=== PATIENT | male | born 1945 | race Caucasian/White ===

== ENCOUNTER 2016-10-18 19:57 | Inpatient (IN) | payer MEDICARE, BC ==
[2016-10-18] MEDS ORDERED: LORazepam 2 MG/ML SYRINGE IV STA (20:19)
--- NOTE | 2016-10-18 20:43 | ED ---
Abdominal Pain HPI - General Source: patient, RN notes reviewed Mode of arrival: EMS <Noris Hernadez - Last Filed: 10/18/16 23:02> <Lauri Rodriguez - Last Filed: 10/19/16 08:57> - General Chief Complaint: Abdominal Pain Stated Complaint: ABD PAIN Time Seen by Provider: 10/18/16 20:14 - History of Present Illness Initial Comments: 70-year-old male presents to the emergency department with a chief complaint abdominal pain. Patient has had abdominal pain has not been passing gas and nausea vomiting. Patient went to [facility] was diagnosed with small bowel obstruction. Patient was transferred here for continued care. This patient states he is feeling better. There is no and G-tube placement they were unsuccessful at that facility. Patient states that at this time he is feeling better. The vomiting has resolved.Patient denies any recent fever, chills, shortness of breath, chest pain, back pain, numbness or tingling, dysuria or hematuria, constipation or diarrhea, headaches or visual changes, or any other current symptoms. (Noris Hernadez) - Related Data Home Medications Medication Instructions Recorded Confirmed Vit C/E/Zn/Coppr/Lutein/Zeaxan 1 cap PO DAILY 10/18/16 10/18/16 [Preservision Areds 2 Softgel] Allergies Allergy/AdvReac Type Severity Reaction Status Date / Time No Known Allergies Allergy Verified 10/18/16 20:28 Review of Systems ROS Other: All systems not noted in ROS Statement are negative. <Noris Hernadez - Last Filed: 10/18/16 23:02> ROS Other: All systems not noted in ROS Statement are negative. <Lauri Rodriguez - Last Filed: 10/19/16 08:57> ROS Statement: Those systems with pertinent positive or pertinent negative responses have been documented in the HPI. Past Medical History Past Medical History: Cancer History of Any Multi-Drug Resistant Organisms: None Reported Past Surgical History: Appendectomy Additional Past Surgical History / Comment(s): prostate SX Past Psychological History: No Psychological Hx Reported Smoking Status: Current every day smoker Past Alcohol Use History: Daily Past Drug Use History: None Reported <Noris Hernadez - Last Filed: 10/18/16 23:02> General Exam <Noris Hernadez - Last Filed: 10/18/16 23:02> <Lauri Rodriguez - Last Filed: 10/19/16 08:57> - General Exam Comments Initial Comments: General: The patient is awake and alert, in no distress, and does not appear acutely ill. Eye: Pupils are equal, round and reactive to light, extra-ocular movements are intact; there is normal conjunctiva bilaterally. No signs of icterus. Ears, nose, mouth and throat: There are moist mucous membranes. Neck: The neck is supple, there is no tenderness. Cardiovascular: There is a regular rate and rhythm. No murmur, rub or gallop is appreciated. Respiratory: Lungs are clear to auscultation, respirations are non-labored, breath sounds are equal. No wheezes, stridor, rales, or rhonchi. Gastrointestinal: Soft, distended, non-tender abdomen without masses or organomegaly noted. There is no rebound or guarding present. No CVA tenderness. Bowel sounds are unremarkable. Back: There is no tenderness to palpation in the midline. There is no obvious deformity. No rashes noted. Musculoskeletal: Normal ROM, no tenderness, There is no pedal edema. There is no calf tenderness or swelling. Sensation intact. Pulses equal bilaterally 2+. Neurological: CN II-XII intact, There are no obvious motor or sensory deficits. Coordination appears grossly intact. Speech is normal. Skin: Skin is warm and dry and no rashes or lesions are noted. Psychiatric: Cooperative, appropriate mood & affect, normal judgment. (Noris Hernadez) Medical Decision Making <Noris Hernadez - Last Filed: 10/18/16 23:02> - Lab Data Result diagrams: 10/19/16 07:17 10/19/16 07:17 <Lauri Rodriguez - Last Filed: 10/19/16 08:57> - Medical Decision Making 70-year-old male with chief complaint of abdominal pain. This time patient does appear to be small bowel obstruction. This time there was multiple times to place an NG tube with no success. This patient continues to deny any pain or discomfort. At this time we will admit the patient for the small bowel obstruction. We discussed this with the patient was in agreement with plan. ( Noris Hernadez) I saw this patient in conjunction with the physician front desk assistant. I performed independent history and physical exam. Agree with case management. (Lauri Rodriguez) Disposition Time of Disposition: 21:42 Decision Date: 10/18/16 Decision Time: 21:42 <Noris Hernadez - Last Filed: 10/18/16 23:02> <Lauri Rodriguez - Last Filed: 10/19/16 08:57> Clinical Impression: Small bowel obstruction Disposition: ADMITTED IP TO THIS [facility] Condition: Stable
[2016-10-18] MEDS ORDERED: ONDANSETRON 4 MG/2 ML VIAL IVP PRN (23:02)
[2016-10-18] MEDS ORDERED: LORazepam 2 MG/ML SYRINGE IV PRN (23:02)
[2016-10-18] MEDS ORDERED: NALOXONE 0.4 MG/ML 1 ML VIAL IV PRN (23:02)
[2016-10-18] MEDS ORDERED: PIPERACILLIN-TAZOBACTAM 3.375 GM in DEXTROSE/WATER 1 50ML.BAG IVPB STA (23:27)
[2016-10-18] MEDS ORDERED: ACETAMINOPHEN IV (For NPO) 1,000 MG in EMPTY BAG 1 BAG IVPB ONE (23:30)
[2016-10-19] MEDS: SODIUM CHLORIDE 0.9% 1,000 ML IV SCH ×3 (00:07→21:46)
[2016-10-19 07:52] LABS: ALT 41 U/L (21-72); AST 25 U/L (17-59); Alkaline Phosphatase 71 U/L (38-126); Anion Gap 7 mmol/L; Blood Urea Nitrogen 14 mg/dL (9-20); Carbon Dioxide 27 mmol/L (22-30); Chloride 100 mmol/L (98-107); Glucose 94 mg/dL (74-99); Non-African American GFR(MDRD) >60 (>60 ml/min/1.73 sqM); Potassium 3.8 mmol/L (3.5-5.1); Sodium 134 mmol/L (137-145); Total Bilirubin 0.7 mg/dL (0.2-1.3); Total Protein 5.4 g/dL (6.3-8.2)
[2016-10-19 08:21] LABS: Basophils % (A) 1 %; CH 33.9; CHCM 34.5; Eosinophils # (A) 0.1 k/uL (0-0.7); Eosinophils % (A) 2 %; HCT 43.8 % (39.0-53.0); HGB 14.9 gm/dL (13.0-17.5); Luc # (Auto) 0.13; Luc % (Auto) 2; Lymphocytes # (A) 1.4 k/uL (1.0-4.8); Lymphocytes % (A) 19 %; MCH 33.7 pg (25.0-35.0); MCHC 34.1 g/dL (31.0-37.0); MCV 98.9 fL (80.0-100.0); Mean Platelet Volume 7.5; Monocytes # (A) 0.6 k/uL (0-1.0); Monocytes % (A) 8 %; Neutrophils # (A) 5.2 k/uL (1.3-7.7); Neutrophils % (A) 69 %; RBC 4.43 m/uL (4.30-5.90); RDW 12.8 % (11.5-15.5); WBC 7.5 k/uL (3.8-10.6); WBC (Perox) 8.02
[2016-10-19] MEDS: PIPERACILLIN-TAZOBACTAM 3.375 GM in DEXTROSE/WATER 1 50ML.BAG IVPB SCH ×3 (09:08→23:37)
--- NOTE | 2016-10-19 14:39 | XR ---
EXAMINATION TYPE: XR abdomen 1V DATE OF EXAM: 10/19/2016 COMPARISON: NONE INDICATION: Nasogastric tube placement TECHNIQUE: Single view abdomen upright position FINDINGS: Multiple dilated small bowel loops with air-fluid levels are present. Findings are compatible with hi gh-grade partial small bowel obstruction. Some colonic bowel gas may be in the right lower quadrant. IMPRESSION: 1. Findings suggestive for small bowel obstruction. 2. Nasogastric tube placed with the tip in the left upper quadrant of the abdomen.
[2016-10-19] MEDS: HYDROmorphone 1 MG/ML 1 ML SYRINGE IV PRN ×2 (14:46→21:45)
--- NOTE | 2016-10-19 16:07 | P.GSHP ---
History of Present Illness H&P Date: 10/19/16 Chief Complaint: Abdominal pain Patient is a 70-year-old male, referred from Dr. Gt Sullivan, with medical history significant for appendectomy, prostatectomy, and alcohol abuse. Patient was transferred from [facility] where he had originally presented with abdominal pain, bloating, nausea and vomiting. Apparently, patient had suffered from diarrhea for 2-3 days approximately 2 weeks ago and then he started having constipation. Over the last 4-5 days, patient reports not having a bowel movement or passing flatus and was experiencing increased abdominal bloating and burping. Yesterday, patient had intermittent episodes of bilious emesis. No history of fevers, chills, shortness of breath, or chest pain. Computed tomography scan of abdomen and pelvis obtained at [facility] showed evidence of small bowel obstruction at the level of the proximal ascending colon with an annular lesion with approximately 4.3 cm of small bowel dilatation. Apparently nasogastric tube was attempted several times at [facility] and in the emergency department at [facility] without success. In the emergency department, patient was started on IV Zosyn and patient was admitted to the surgical unit. Past Medical History Past Medical History: Cancer History of Any Multi-Drug Resistant Organisms: None Reported Past Surgical History: Appendectomy Additional Past Surgical History / Comment(s): prostate SX Past Anesthesia/Blood Transfusion Reactions: No Reported Reaction Past Psychological History: No Psychological Hx Reported Smoking Status: Never smoker Past Alcohol Use History: Daily Past Drug Use History: None Reported Medications and Allergies Home Medications Medication Instructions Recorded Confirmed Type Vit C/E/Zn/Coppr/Lutein/Zeaxan 1 cap PO DAILY 10/18/16 10/18/16 History [Preservision Areds 2 Softgel] Allergies Allergy/AdvReac Type Severity Reaction Status Date / Time No Known Allergies Allergy Verified 10/18/16 20:28 Surgical - Exam Vital Signs Temp Pulse Resp BP Pulse Ox 99.9 F H 101 H 18 145/75 96 10/18/16 20:01 10/18/16 20:01 10/18/16 20:01 10/18/16 20:01 10/18/16 20:01 GENERAL: Pt awake and alert, well-appearing, well-nourished, and in no acute distress. HEAD: Atraumatic, normocephalic. EYES: Pupils equal, round, sclera anicteric, conjunctiva are normal. ENT: Moist mucous membranes. LUNGS: Breath sounds clear to auscultation bilaterally. No wheezes, rales, or rhonchi. HEART: Heart S1, S2, no S3 or S4. Regular rate and rhythm. No murmurs, rubs or gallops. ABDOMEN: Soft, mild diffuse tenderness, distended tympanic bowel sounds. No guarding, no rebound. EXTREMITIES: 2+ peripheral pulses. NEUROLOGICAL: Pt oriented x 3. No focal deficits noted. Strength and sensation grossly intact. Results - Labs 10/19/16 07:17 10/19/16 07:17 Abnormal Lab Results - Last 24 Hours (Table) 10/19/16 Range/Units 07:17 Sodium 134 L (137-145) mmol/L Creatinine 0.63 L (0.66-1.25) mg/dL Calcium 8.0 L (8.4-10.2) mg/dL Total Protein 5.4 L (6.3-8.2) g/dL Albumin 3.0 L (3.5-5.0) g/dL Diabetes panel 10/19/16 Range/Units 07:17 Sodium 134 L (137-145) mmol/L Potassium 3.8 (3.5-5.1) mmol/L Chloride 100 (98-107) mmol/L Carbon Dioxide 27 (22-30) mmol/L BUN 14 (9-20) mg/dL Creatinine 0.63 L (0.66-1.25) mg/dL Glucose 94 (74-99) mg/dL Calcium 8.0 L (8.4-10.2) mg/dL AST 25 (17-59) U/L ALT 41 (21-72) U/L Alkaline Phosphatase 71 (38-126) U/L Total Protein 5.4 L (6.3-8.2) g/dL Albumin 3.0 L (3.5-5.0) g/dL Calcium panel 10/19/16 Range/Units 07:17 Calcium 8.0 L (8.4-10.2) mg/dL Albumin 3.0 L (3.5-5.0) g/dL Pituitary panel 10/19/16 Range/Units 07:17 Sodium 134 L (137-145) mmol/L Potassium 3.8 (3.5-5.1) mmol/L Chloride 100 (98-107) mmol/L Carbon Dioxide 27 (22-30) mmol/L BUN 14 (9-20) mg/dL Creatinine 0.63 L (0.66-1.25) mg/dL Glucose 94 (74-99) mg/dL Calcium 8.0 L (8.4-10.2) mg/dL Adrenal panel 10/19/16 Range/Units 07:17 Sodium 134 L (137-145) mmol/L Potassium 3.8 (3.5-5.1) mmol/L Chloride 100 (98-107) mmol/L Carbon Dioxide 27 (22-30) mmol/L BUN 14 (9-20) mg/dL Creatinine 0.63 L (0.66-1.25) mg/dL Glucose 94 (74-99) mg/dL Calcium 8.0 L (8.4-10.2) mg/dL Total Bilirubin 0.7 (0.2-1.3) mg/dL AST 25 (17-59) U/L ALT 41 (21-72) U/L Alkaline Phosphatase 71 (38-126) U/L Total Protein 5.4 L (6.3-8.2) g/dL Albumin 3.0 L (3.5-5.0) g/dL Assessment and Plan Plan: Impression: 1. Small bowel obstruction possibly due to obstructive lesion. Plan: Keep patient nothing by mouth. Insert nasogastric tube to low intermittent suction. Continue IV hydration. Continue IV antibiotics. Continue symptomatic treatment and pain management. Repeat CBC and BMP in a.m. The above impression and plan have been discussed and directed by Dr. Wu. Chantel MOSS acting as scribe for Dr. Wu.
[2016-10-20] MEDS: SODIUM CHLORIDE 0.9% 1,000 ML IV SCH ×2 (05:16→15:57)
[2016-10-20 07:40] LABS: Anion Gap 9 mmol/L; Blood Urea Nitrogen 14 mg/dL (9-20); Calcium 7.9 mg/dL (8.4-10.2); Carbon Dioxide 20 mmol/L (22-30); Chloride 106 mmol/L (98-107); Glucose 62 mg/dL (74-99); Non-African American GFR(MDRD) >60 (>60 ml/min/1.73 sqM); Potassium 3.8 mmol/L (3.5-5.1); Sodium 135 mmol/L (137-145)
[2016-10-20 08:03] LABS: Basophils # (A) 0.1 k/uL (0-0.2); Basophils % (A) 1 %; CH 33.6; CHCM 34.8; Eosinophils # (A) 0.1 k/uL (0-0.7); Eosinophils % (A) 2 %; HCT 41.7 % (39.0-53.0); HGB 14.5 gm/dL (13.0-17.5); Luc # (Auto) 0.16; Luc % (Auto) 2; Lymphocytes # (A) 1.9 k/uL (1.0-4.8); Lymphocytes % (A) 24 %; MCH 33.8 pg (25.0-35.0); MCHC 34.8 g/dL (31.0-37.0); MCV 97.1 fL (80.0-100.0); Mean Platelet Volume 7.2; Monocytes # (A) 0.5 k/uL (0-1.0); Monocytes % (A) 6 %; Neutrophils # (A) 5.1 k/uL (1.3-7.7); Neutrophils % (A) 65 %; RDW 12.7 % (11.5-15.5); WBC 7.8 k/uL (3.8-10.6); WBC (Perox) 7.55
[2016-10-20] MEDS: PIPERACILLIN-TAZOBACTAM 3.375 GM in DEXTROSE/WATER 1 50ML.BAG IVPB SCH ×3 (09:23→23:42)
[2016-10-20] MEDS: PANTOPRAZOLE 40 MG/10 ML VIAL IVP SCH (09:23)
[2016-10-20] MEDS: IOHEXOL 350 MG/ML 25 ML BOTTLE (ORAL USE) PO PRN ×2 (13:28→16:00)
[2016-10-20] MEDS ORDERED: KETOROLAC 30 MG/ML 1 ML VIAL IVP PRN (14:04)
--- NOTE | 2016-10-20 14:47 | P.PN ---
Subjective Principal diagnosis: Small bowel obstruction Patient is a 70-year-old male, referred from Dr. Gt Sullivan, admitted with evidence of small bowel obstruction at the level of the proximal ascending colon with an annular lesion with approximately 4.3 cm of small bowel dilatation. Nasogastric tube was inserted yesterday for small bowel decompression. Upon examination, patient complains of minimal abdominal pain. Denies nausea, vomiting, chills, or chest pain. Patient states she might have passed flatus when he was up ambulating but is not sure. No bowel movement. Afebrile. No evidence of leukocytosis. 650 mL of gastric drainage was obtained immediately after nasogastric tube was inserted at 3 PM yesterday with subsequently 150 mL obtained since then. Objective - Vital Signs Vital signs: Vital Signs Temp 97.6 F 10/20/16 14:10 Pulse 79 10/20/16 14:10 Resp 16 10/20/16 14:10 BP 154/79 10/20/16 14:10 Pulse Ox 95 10/20/16 14:10 Intake & Output 10/19/16 10/20/16 10/20/16 18:59 06:59 18:59 Intake Total 950 1150 Output Total 650 150 Balance 300 1000 Intake: Intake, IV Titration 950 1150 Amount Piperacillin-Tazobactam 3 50 100 .375 gm In Dextrose/Water 1 50ml.bag @ 12.5 mls/hr IVPB Q8HR [facility]MA Rx#: [id number] Sodium Chloride 0.9% 1, 900 1050 000 ml @ 100 mls/hr IV . Q10H EMMA Rx#:[id number] Output: Gastric Drainage 650 150 Other: Voiding Method Toilet Toilet # Voids 1 3 - Exam GENERAL: Pt awake and alert, well-appearing, well-nourished, and in no acute distress. HEAD: Atraumatic, normocephalic. EYES: Pupils equal, round, sclera anicteric, conjunctiva are normal. ENT: Moist mucous membranes. LUNGS: Breath sounds diminished with rhonchi to auscultation bilaterally. HEART: Heart S1, S2, no S3 or S4. Regular rate and rhythm. No murmurs, rubs or gallops. ABDOMEN: Soft, nontender, distended, hypoactive bowel sounds. No guarding, no rebound. - Labs CBC & Chem 7: 10/20/16 06:47 10/20/16 06:47 Labs: Abnormal Lab Results - Last 24 Hours (Table) 10/20/16 Range/Units 06:47 Sodium 135 L (137-145) mmol/L Carbon Dioxide 20 L (22-30) mmol/L Creatinine 0.65 L (0.66-1.25) mg/dL Glucose 62 L (74-99) mg/dL Calcium 7.9 L (8.4-10.2) mg/dL Assessment and Plan Plan: Impression: 1. Small bowel obstruction possibly due to obstructive lesion. Plan: Patient will undergo repeat CT abdomen and pelvis with oral contrast. Continue nasogastric tube for small bowel decompression. Continue IV hydration. Continue IV antibiotics. Continue symptomatic treatment and pain management. Repeat CBC and BMP in a.m. The above impression and plan have been discussed and directed by Dr. Wu. Chantel MOSS acting as scribe for Dr. Wu.
[2016-10-20] MEDS: HEPARIN SODIUM,PORCINE 5,000 UNIT/ML 1 ML VIAL SQ SCH ×2 (16:36→23:42)
--- NOTE | 2016-10-20 19:28 | CT ---
EXAMINATION TYPE: CT abdomen pelvis wo con DATE OF EXAM: 10/20/2016 COMPARISON: NONE HISTORY: Follow-up small bowel obstruction. CT DLP: 466.70 mGycm FINDINGS: LUNG BASES: Bilateral pleural effusions measuring 4.1 cm AP dimension on the left and 2.6 cm AP dimen sin on the right. Basilar compressive atelectasis noted as well. LIVER/GB: The gallbladder is unremarkable. No space-occupying hepatic lesion. PANCREAS: No pancreatic mass identified. No inflammatory process seen. SPLEEN: No evidence for splenomegaly. No intrasplenic lesions seen. ADRENALS: No adrenal nodules identified. No evidence for thickening. KIDNEYS: No evidence for renal mass. No nephrolithiasis. No hydronephrosis. BOWEL: NG tube is in place.There is severe dilatation of the ileal loops with fecalization noted. Ile al loops measure up to a 7.8 cm. The jejunal loops are also dilated although to a lesser extent measu ring up to 4.7 cm. There is decompression of the Colon. The findings are compatible with complete di stal small bowel obstruction. There is mild edema of the right lower quadrant small bowel mesentery. Small bowel wall thickening is seen. There is small amount of ascites within the pelvis. Fat-containi ng umbilical hernia. Lymph nodes: No evidence for adenopathy greater than 1 cm. Abdominal aorta: Atheromatous changes seen. No evidence for aneurysm. Genital organs: No significant abnormality. Other: Generative changes lumbar spine. IMPRESSION: 1.The findings are compatible with complete high-grade distal small bowel obstruction. 2. Bilateral pleural effusions and compressive atelectasis. 3. Small amount of ascites. 4. Fat-containing umbilical hernia.
[2016-10-20] MEDS: HYDROmorphone 1 MG/ML 1 ML SYRINGE IV PRN (22:16)
--- NOTE | 2016-10-20 23:34 | CONS ---
DATE OF CONSULTATION: REASON FOR CONSULTATION: Dehydration and IV fluid management. Patient is a very pleasant 70-year-old gentleman who came in with nausea, vomiting, abdominal pain. Abdominal pain at this point of time has resolved. Patient still has abdominal distention. Patient was having significant output from the NG tube. Patient was on 100 mL of IV fluid. Patient has a total of 150 mL from the NG tube. Patient was constipated apparently. Patient does not have any bowel sounds. Patient had bilious emesis. Patient's NG tube was clamped at this point of time. Patient is going for CT of the abdomen for further evaluation. Patient does not have any significant medical problems. Patient denied any fever or chills. Patient denied any cough, runny nose, dysuria. Patient is on Zosyn, although I did not see any signs or symptoms of infection at this point of time. REVIEW OF SYSTEMS: CONSTITUTIONAL: No fever, no malaise, no fatigue. HEENT: No recent visual problems or hearing problems. Denied any sore throat. CARDIOVASCULAR: No chest pain, orthopnea, PND, no palpitations, no syncope. PULMONARY: No shortness of breath, no cough, no hemoptysis. GASTROINTESTINAL: As described in HPI. NEUROLOGICAL: No headaches, no weakness, no numbness. HEMATOLOGICAL: Denies any bleeding or petechiae. GENITOURINARY: Denies any burning micturition, frequency, or urgency. MUSCULOSKELETAL/RHEUMATOLOGICAL: Denies any joint pain, swelling, or any muscle pain. ENDOCRINE: Denies any polyuria or polydipsia. The rest of the 14 point review of systems is negative. Past medical history is significant for: 1. Cancer; not sure where the primary is. 2. Appendectomy. SOCIAL HISTORY: Denied any smoking, alcohol abuse or any drug abuse. FAMILY HISTORY: Unknown at this point of time. PHYSICAL EXAMINATION: Temperature 97.6, pulse of 79, respiratory rate of 16, blood pressure 154/79. Saturating at 94% on room air. GENERAL: The patient is alert and oriented x3, not in any acute distress. Well developed, well nourished. HEENT: Pupils are round and equally reacting to light. EOMI. No scleral icterus. No conjunctival pallor. Normocephalic, atraumatic. No pharyngeal erythema. No thyromegaly. CARDIOVASCULAR: S1 and S2 present. No murmurs, rubs, or gallops. PULMONARY: Chest is clear to auscultation, no wheezing or crackles. ABDOMEN: Distended. Tympanitic. Sluggish or absent bowel sounds in all 4 quadrants. MUSCULOSKELETAL: No joint swelling or deformity. EXTREMITIES: No cyanosis, clubbing, or pedal edema. NEUROLOGICAL: Gross neurological examination did not reveal any focal deficits. SKIN: No rashes. LABORATORY DATA, SIGNIFICANT ONES: Sodium was 134 yesterday and now 135. ASSESSMENT AND PLAN: 1. Partial small bowel obstruction. Patient is undergoing CT today. Patient has an NG tube which only drained 120 mL today, because of which I believe 100 mL is appropriate. 2. Acute renal failure due to nausea and vomiting, which is expected to improve with IV fluids. Patient is on appropriate rate of IV fluids at this point of time. 3. Hyponatremia; hypovolemic hyponatremia, which is improving at this point of time with IV fluids. 4. Regarding pain medications, patient is not requiring much pain medication. 5. Patient will be started on Ketorolac and patient is already on GI prophylaxis. 6. DVT prophylaxis as per primary service. 7. Patient is appropriately on heparin at this point of time. Thank for letting me participate in this patient's care. Will continue to follow the patient.
[2016-10-21] MEDS: SODIUM CHLORIDE 0.9% 1,000 ML IV SCH ×2 (03:17→14:59)
[2016-10-21] MEDS: PANTOPRAZOLE 40 MG/10 ML VIAL IVP SCH (09:06)
[2016-10-21] MEDS: PIPERACILLIN-TAZOBACTAM 3.375 GM in DEXTROSE/WATER 1 50ML.BAG IVPB SCH ×3 (09:12→23:13)
[2016-10-21] MEDS: HEPARIN SODIUM,PORCINE 5,000 UNIT/ML 1 ML VIAL SQ SCH ×3 (09:12→23:14)
[2016-10-21] MEDS ORDERED: IV FLUID CONTINUATION 1,000 ML IV ONE (10:02)
[2016-10-21 10:05] VITALS: BMI 23.2
[2016-10-21] MEDS ORDERED: MIDAZOLAM 2 MG/2 ML VIAL IVP ONE ×2 (10:28→11:11)
[2016-10-21] MEDS ORDERED: fentaNYL (PF) 50 MCG/ML 2 ML AMP IV ONE ×2 (10:28→11:11)
[2016-10-21] MEDS ORDERED: ONDANSETRON 4 MG/2 ML VIAL IVP ONE (10:43)
[2016-10-21] MEDS ORDERED: DEXAMETHASONE SOD PHOS (MDV) 100 MG/10 ML VIAL IVP ONE (10:44)
--- NOTE | 2016-10-21 10:47 | P.PN ---
Progress Note - Text The patient's latest CAT scan shows a complete high-grade small bowel obstruction. Patient will undergo exposure laparotomy with possible lysis of adhesion or bowel resection today.
[2016-10-21] MEDS ORDERED: CLINDAMYCIN 150 MG/ML 4 ML VIAL ONE (11:12)
[2016-10-21] MEDS ORDERED: SODIUM CHLORIDE 0.9% 100 ML BAG ONE (11:12)
[2016-10-21] MEDS ORDERED: NEOSTIGMINE 1 MG/ML 10 ML VIAL ONE (11:12)
[2016-10-21] MEDS ORDERED: SUCCINYLCHOLINE CHLORIDE 100 MG/5 ML SYR IV ONE (11:12)
[2016-10-21] MEDS ORDERED: PROPOFOL 10 MG/ML 20 ML VIAL IV ONE (11:12)
[2016-10-21] MEDS ORDERED: LIDOCAINE 1% INJ 10MG/ML (20 ML MDV) ONE (11:12)
[2016-10-21] MEDS ORDERED: ePHEDrine 50 MG/ML 1 ML AMP ONE (11:12)
[2016-10-21] MEDS ORDERED: ROCURONIUM BROMIDE 10 MG/ML 10 ML VIAL IV ONE (11:12)
[2016-10-21] MEDS ORDERED: PHENYLEPHRINE-0.9% NACL SYG 1 MG/10 ML SYRINGE ONE (11:12)
[2016-10-21] MEDS ORDERED: MIDAZOLAM 2 MG/2 ML VIAL ONE (11:12)
[2016-10-21] MEDS ORDERED: fentaNYL (PF) 50 MCG/ML 2 ML AMP ONE (11:12)
[2016-10-21] MEDS ORDERED: HEPARIN SODIUM,PORCINE 5,000 UNIT/ML 1 ML VIAL ONE (11:12)
[2016-10-21] MEDS ORDERED: GLYCOPYRROLATE 0.2 MG/ML 2 ML VIAL ONE (11:12)
[2016-10-21] MEDS ORDERED: NALOXONE 0.4 MG/ML 1 ML VIAL IV PRN (11:43)
[2016-10-21] MEDS ORDERED: LACTATED RINGERS 1,000 ML IV ONE ×2 (11:52→12:35)
[2016-10-21] MEDS ORDERED: HYDROmorphone 1 MG/ML 1 ML SYRINGE IVP PRN (12:47)
[2016-10-21] MEDS ORDERED: METOCLOPRAMIDE 5 MG/ML 2 ML VIAL IVP PRN (12:47)
--- NOTE | 2016-10-21 12:57 | P.OP ---
Date of Procedure: 10/21/16 Preoperative Diagnosis: Small bowel obstruction Postoperative Diagnosis: Ventral hernia Incarcerated umbilical hernia with incarcerated omentum Small bowel and cecal obstruction secondary to right colon cancer Procedure(s) Performed: Right colectomy Repair of ventral hernia Repair of incarcerated umbilical hernia Partial greater omentectomy Implants: Anesthesia: GO Surgeon: Gilbert Wu Estimated Blood Loss (ml): 150 Pathology: other (Right colon, terminal ileum, incarcerated greater omentum) Condition: stable Disposition: PACU Indications for Procedure: Operative Findings: Description of Procedure: Patient's placed the operative table in the supine position. He received general anesthesia. His abdomen was prepped and draped in usual sterile fashion. The abdomen was entered through a midline incision. There was incarcerated umbilical hernia. The omentum was dissected free from the incarcerated we'll hernia. Sent to pathology. There is also noted to be a small ventral hernia located in the midline. There was distended small bowel seen upon entering the abdomen. There was some ascitic fluid. The small bowel was run from the ligament traced to the terminal ileum and there was no obstruction seen. There was a complete small bowel obstruction with the bowel quite dilated. The cecum was dilated. There was a obstructing mass in the ascending colon. At this point the right colon and cecum were mobilized by dividing the white line of Toldt. The hepatic flexure is mobilized. And then the colon distal to the obstruction was transected with the FANTA stapler. Following this the terminal ileum was transected with a GI stapler. Then using LigaSure device the mesentery the colon and small bowel were divided. The specimens of pathology. Next a small opening was made in the staple line of the small bowel and using suction the small bowel was decompressed. There is a large amount of feculent fluid within the small bowel. Next a [id number] functional end-to-end staple anastomosis created between the terminal ileum and distal descending colon. Using the FANTA and TA stapler. A 3-0 GI silk was used for a crotch stitch. The abdomen was then clipped irrigated with 6 L normal saline. There is no other evidence of metastatic disease. The fascia was then closed with looped #1 PDS suture. The umbilical hernia and ventral hernia were repaired during the fascial closure. The skin was closed jules. 2 small areas were left open with Telfa melvin placed in the subcutaneous space. The patient had sterile dressing applied and was sent to recovery in stable condition.
[2016-10-21] MEDS: BUPIVACAINE (PF) 0.5% 50 ML, HYDROMORPHONE (PF) 5 MG in SODIUM CHLORIDE 0.9% 200 ML EPIDURAL PRN ×3 (13:03→14:41)
[2016-10-21] MEDS: LACTATED RINGERS 1,000 ML IV SCH ×3 (14:41→20:37)
[2016-10-22] MEDS: LACTATED RINGERS 1,000 ML IV SCH ×2 (05:06→15:29)
[2016-10-22 07:28] LABS: Basophils % (A) 0 %; CH 33.7; CHCM 34.4; Eosinophils % (A) 0 %; HCT 39.9 % (39.0-53.0); HDW 2.65; HGB 13.4 gm/dL (13.0-17.5); Luc % (Auto) 2; Lymphocytes # (A) 1.6 k/uL (1.0-4.8); Lymphocytes % (A) 15 %; MCH 33.2 pg (25.0-35.0); MCHC 33.7 g/dL (31.0-37.0); MCV 98.5 fL (80.0-100.0); Mean Platelet Volume 7.5; Monocytes # (A) 0.5 k/uL (0-1.0); Monocytes % (A) 5 %; Neutrophils # (A) 8.1 k/uL (1.3-7.7); Neutrophils % (A) 78 %; RBC 4.05 m/uL (4.30-5.90); RDW 12.6 % (11.5-15.5); WBC 10.5 k/uL (3.8-10.6); WBC (Perox) 11.26
[2016-10-22 07:51] LABS: Anion Gap 6 mmol/L; Blood Urea Nitrogen 12 mg/dL (9-20); Calcium 7.9 mg/dL (8.4-10.2); Carbon Dioxide 26 mmol/L (22-30); Chloride 103 mmol/L (98-107); Glucose 89 mg/dL (74-99); Non-African American GFR(MDRD) >60 (>60 ml/min/1.73 sqM); Potassium 4.7 mmol/L (3.5-5.1); Sodium 135 mmol/L (137-145)
[2016-10-22] MEDS: HEPARIN SODIUM,PORCINE 5,000 UNIT/ML 1 ML VIAL SQ SCH ×3 (08:30→23:35)
[2016-10-22] MEDS: PANTOPRAZOLE 40 MG/10 ML VIAL IVP SCH (08:30)
[2016-10-22] MEDS: PIPERACILLIN-TAZOBACTAM 3.375 GM in DEXTROSE/WATER 1 50ML.BAG IVPB SCH ×3 (09:39→23:36)
--- NOTE | 2016-10-22 11:54 | P.PN ---
Subjective Principal diagnosis: Colon tumor The patient's postoperative day 1 from a right hemicolectomy for a colon tumor. His pain is well controlled with epidural. No nausea no vomiting. No chest pain or shortness of breath. Objective - Vital Signs Vital signs: Vital Signs Temp 97.7 F 10/22/16 08:00 Pulse 111 H 10/22/16 08:00 Resp 16 10/22/16 08:00 BP 117/56 10/22/16 08:00 Pulse Ox 96 10/22/16 08:00 Intake & Output 10/21/16 10/22/16 10/22/16 18:59 06:59 18:59 Intake Total 2809 Output Total 530 875 Balance 2279 -875 Weight 69.4 kg Intake: IV 2809 Output: Gastric Drainage 200 Urine 400 675 Uretheral (Bowens) 675 Estimated Blood Loss 130 Other: Voiding Method Indwelling Catheter Indwelling Catheter # Voids 1 - Constitutional General appearance: Present: cooperative, no acute distress - Respiratory Respiratory: bilateral: CTA, diminished (Mildly at the base) - Cardiovascular Rhythm: regular - Gastrointestinal General gastrointestinal: Present: absent bowel sounds, soft Localized gastrointestinal: surgical scar: diffuse (Dressing is intact clean and dry) - Labs CBC & Chem 7: 10/22/16 06:32 10/22/16 06:32 Labs: Abnormal Lab Results - Last 24 Hours (Table) 10/22/16 10/22/16 Range/Units 06:32 06:32 RBC 4.05 L (4.30-5.90) m/uL Neutrophils # 8.1 H (1.3-7.7) k/uL Sodium 135 L (137-145) mmol/L Calcium 7.9 L (8.4-10.2) mg/dL Assessment and Plan (1) Colon tumor Status: Acute (2) Small bowel obstruction Status: Acute Plan: Continue epidural for pain. Activity as tolerated. Continue DVT and ulcer prophylaxis. Continue incentive spirometry. Progressing slowly
--- NOTE | 2016-10-22 17:15 | XR ---
EXAMINATION TYPE: XR chest 1V DATE OF EXAM: 10/22/2016 5:11 PM COMPARISON: NONE HISTORY: Hypoxemia TECHNIQUE: Single frontal view of the chest is obtained. FINDINGS: There is blunting of both costophrenic angles. There is patchy consolidation at the left l moriah base. There is no gross heart failure. There are no hilar masses. Nasogastric tube is noted. IMPRESSION: Pleural effusions with left basilar infiltrate. This is consistent with pneumonia. No he art failure seen..
--- NOTE | 2016-10-22 17:49 | P.PN ---
Progress Note - Text Postoperative day 1 status post right hemicolectomy, under general endotracheal anesthesia, the epidural catheter placed for postoperative analgesia, patient currently on continuous infusion of ropivacaine/Dilaudid at 9 mL per hour, vital signs stable,VAS 3/10, no motor deficit, the epidural site okay Assessment and plan= adequate pain control ,will continue the same management
--- NOTE | 2016-10-22 21:47 | PN ---
I reevaluated the patient today. Patient become anuric as patient did not receive IV fluids and was having significant output. Since yesterday output slow down and patient was started back on IV fluids at this point of time. Patient was documented to have hypoxemia because of which I ordered a chest x-ray, although patient when I evaluated is not hypoxemic, saturating at 95%. Patient may have a bit of atelectasis in the right lower lung and chest x-ray did show infiltrate, may be atelectasis. Patient clinically does not have pneumonia. Anyways patient is on antibiotics because of which I did not change anything at this time and continuing IV fluids and will monitor urine output. REVIEW OF SYSTEMS: CARDIOVASCULAR: No chest pain, no orthopnea, no PND, no palpitations. PULMONARY: Denied any shortness of breath. No cough or hemoptysis. GASTROINTESTINAL: No diarrhea, nausea or vomiting. No abdominal pain. Normoactive bowel sounds. NEUROLOGIC: No headaches, no weakness, no numbness. Medications are reviewed. PHYSICAL EXAMINATION: VITAL SIGNS: Temperature 97.3, pulse 98, respiratory rate of 16, blood pressure is 100/63 and kidney function did get worse a little bit from 0.6 to 0.8. GENERAL: The patient is alert and oriented x3, not in any acute distress. Well developed, well nourished. HEENT: Pupils are round and equally reacting to light. EOMI. No scleral icterus. No conjunctival pallor. Normocephalic, atraumatic. No pharyngeal erythema. No thyromegaly. CARDIOVASCULAR: S1 and S2 present. No murmurs, rubs, or gallops. PULMONARY: Chest is clear to auscultation, no wheezing or crackles. ABDOMEN: Soft, nontender, nondistended, normoactive bowel sounds. No palpable organomegaly. MUSCULOSKELETAL: No joint swelling or deformity. EXTREMITIES: No cyanosis, clubbing, or pedal edema. NEUROLOGICAL: Gross neurological examination did not reveal any focal deficits. SKIN: No rashes. ASSESSMENT AND PLAN: 1. Partial small bowel obstruction. NG tube in place. The patient is on 125 mL of fluids which need to be continued. 2. Anuria, probably due to dehydration and intravascular volume depletion from the NG tube output. IV fluids should improve his urine output. If it does not, we will go ahead and give bolus. 3. Mild hyponatremia secondary to hypovolemic hyponatremia which appeared to have improved from my previous assessment. 4. Left lung atelectasis. Possibility of pneumonia is low. Anyways, patient is on Zosyn, which will be continued. 5. Deep venous thrombosis prophylaxis per primary service for which patient is on heparin subcutaneous at this point of time.
[2016-10-23] MEDS: BUPIVACAINE (PF) 0.5% 50 ML, HYDROMORPHONE (PF) 5 MG in SODIUM CHLORIDE 0.9% 200 ML EPIDURAL PRN (06:58)
[2016-10-23] MEDS: LACTATED RINGERS 1,000 ML IV SCH ×4 (07:06→21:56)
[2016-10-23 07:33] LABS: Anion Gap 5 mmol/L; Blood Urea Nitrogen 14 mg/dL (9-20); Calcium 8.2 mg/dL (8.4-10.2); Carbon Dioxide 33 mmol/L (22-30); Chloride 99 mmol/L (98-107); Glucose 78 mg/dL (74-99); Non-African American GFR(MDRD) >60 (>60 ml/min/1.73 sqM); Potassium 3.8 mmol/L (3.5-5.1); Sodium 137 mmol/L (137-145)
[2016-10-23] MEDS: HEPARIN SODIUM,PORCINE 5,000 UNIT/ML 1 ML VIAL SQ SCH ×3 (10:15→23:57)
[2016-10-23] MEDS: PANTOPRAZOLE 40 MG/10 ML VIAL IVP SCH (10:15)
[2016-10-23] MEDS: PIPERACILLIN-TAZOBACTAM 3.375 GM in DEXTROSE/WATER 1 50ML.BAG IVPB SCH ×3 (10:15→23:58)
--- NOTE | 2016-10-23 10:35 | P.PN ---
Subjective Patient's postoperative day 2 from right hemicolectomy. He's passed a small amount of flatus. Pain is well controlled with epidural. He's been able to ambulate in the halls. Objective - Vital Signs Vital signs: Vital Signs Temp 98.2 F 10/23/16 08:00 Pulse 84 10/23/16 08:00 Resp 14 10/23/16 08:00 BP 116/60 10/23/16 08:00 Pulse Ox 94 L 10/23/16 08:00 Intake & Output 10/22/16 10/23/16 10/23/16 18:59 06:59 18:59 Intake Total 707 1500 1500 Output Total 450 150 300 Balance 257 1350 1200 Weight 69.4 kg Intake: IV 1500 1500 Invasive Line 2 1500 1500 Intake, IV Titration 707 Amount Bupivacaine (Pf) 0.5% 50 35 ml Hydromorphone (Pf) 5 mg In Sodium Chloride 0.9 % 200 ml @ Per Protocol EPIDURAL .Q0M PRN Rx#: [id number] Lactated Ringers 1,000 ml 633 @ 125 mls/hr IV .Q8H EMMA Rx#:[id number] Piperacillin-Tazobactam 3 39 .375 gm In Dextrose/Water 1 50ml.bag @ 12.5 mls/hr IVPB Q8HR EMMA Rx#: [id number] Output: Gastric Drainage 100 300 Urine 350 150 Uretheral (Bowens) 150 Other: Voiding Method Indwelling Catheter Indwelling Catheter Indwelling Catheter - Constitutional General appearance: Present: cooperative, no acute distress - Respiratory Respiratory: bilateral: CTA, diminished (At the bases), negative: wheezing - Cardiovascular Rhythm: regular - Gastrointestinal General gastrointestinal: Present: decreased bowel sounds, soft Localized gastrointestinal: surgical scar: diffuse (Incisional sites are healing without cellulitis) - Labs CBC & Chem 7: 10/22/16 06:32 10/23/16 06:56 Labs: Abnormal Lab Results - Last 24 Hours (Table) 10/23/16 Range/Units 06:56 Carbon Dioxide 33 H (22-30) mmol/L Creatinine 0.60 L (0.66-1.25) mg/dL Calcium 8.2 L (8.4-10.2) mg/dL Assessment and Plan (1) Colon tumor Status: Acute (2) Small bowel obstruction Status: Acute Plan: We'll clamp the NG tube if he is able to tolerated discontinue it later today. He's progressing slowly.
--- NOTE | 2016-10-23 18:48 | P.PN ---
Progress Note - Text Postoperative day 2 status post right hemicolectomy, patient had epidural catheter placed for postoperative analgesia, doing well with vital signs stable , pain well controlled, the epidural site okay, patient on continuous infusion of bupivacaine/Dilaudid, no motor deficit Assessment and plan= postop day 2 doing well, pain well controlled , we'll continue the same management
[2016-10-24] MEDS: HEPARIN SODIUM,PORCINE 5,000 UNIT/ML 1 ML VIAL SQ SCH ×3 (08:02→23:08)
[2016-10-24] MEDS: PANTOPRAZOLE 40 MG/10 ML VIAL IVP SCH (08:02)
[2016-10-24] MEDS: LACTATED RINGERS 1,000 ML IV SCH ×5 (08:11→21:20)
[2016-10-24] MEDS: PIPERACILLIN-TAZOBACTAM 3.375 GM in DEXTROSE/WATER 1 50ML.BAG IVPB SCH ×3 (10:04→23:08)
--- NOTE | 2016-10-24 11:18 | P.PN ---
Progress Note - Text Postop day 3 status post right hemicolectomy, she had epidural catheter placed for postoperative analgesia, patient on continuous infusion of bupivacaine/ Dilaudid at 5 mL per hour, denies any pain, no motor deficit, epidural site okay , vital signs stable, Assessment and plan= adequate pain control will discontinue the epidural catheter to the afternoon or tomorrow morning
[2016-10-24] MEDS ORDERED: HYDROcodone/APAP 7.5-325MG 1 EACH TAB PO PRN (11:52)
--- NOTE | 2016-10-24 11:54 | P.PN ---
Progress Note - Text The patient is status post right colectomy. He is postoperative day 3. He is tolerant clear liquids. On exam his vital signs are stable. His abdomen soft. His incision site is clean dry intact. There are Telfa melvin in the wound. Patient will have his IV fluids decreased. We will DC his epidural pump. Hopefully be discharged home in the morning.
--- NOTE | 2016-10-24 18:32 | PN ---
Patient's abdomen is still distended, passing gas, did not move his bowels yet and patient is ambulating well at this point of time. Patient continues to have sluggish bowel sounds. Patient's abdomen is tympanic without any tenderness. NG tube was removed and patient is on Zosyn and I recommend Augmentin upon discharge for about 5 days. If he is discharged tomorrow. Plan to discharge him tomorrow with advancing diet. In the meantime hopefully patient will have bowel movement. REVIEW OF SYSTEMS: CARDIOVASCULAR: No chest pain, no orthopnea, no PND, no palpitations. PULMONARY: Denied any shortness of breath. No cough or hemoptysis. GASTROINTESTINAL: as described in HPI. NEUROLOGIC: No headaches, no weakness, no numbness. Medications were reviewed. PHYSICAL EXAMINATION: VITAL SIGNS: Temperature 98.4, pulse of 72, respiratory rate of 18, blood pressure 141/72, saturating at 96% on 2 liters O2 by nasal cannula. GENERAL: The patient is alert and oriented x3, not in any acute distress. Well developed, well nourished. HEENT: Pupils are round and equally reacting to light. EOMI. No scleral icterus. No conjunctival pallor. Normocephalic, atraumatic. No pharyngeal erythema. No thyromegaly. CARDIOVASCULAR: S1 and S2 present. No murmurs, rubs, or gallops. PULMONARY: Chest is clear to auscultation, no wheezing or crackles. ABDOMEN: As mentioned above in the interval history. MUSCULOSKELETAL: No joint swelling or deformity. EXTREMITIES: No cyanosis, clubbing, or pedal edema. NEUROLOGICAL: Gross neurological examination did not reveal any focal deficits. SKIN: No rashes. LABORATORY DATA: None available at this point of time. ASSESSMENT AND PLAN: 1. Partial small bowel obstruction. NG tube was removed and patient is clinically doing well at this point of time. 2. Anuria secondary to dehydration and intravascular volume depletion, which resolved. The patient is having good urine output at this point of time. 3. Hypovolemic hyponatremia resolved. 4. Left lung atelectasis versus pneumonia. Recommend Augmentin for 5 more days upon discharge. 5. DVT prophylaxis and pain management as per primary service. 6. Avoid Opiates that can frustrate his constipation or ileus.
[2016-10-24 22:19] VITALS: RESP 16
[2016-10-25 07:43] VITALS: BP 142/76; PULSE 77; TEMP 98
[2016-10-25] MEDS: PIPERACILLIN-TAZOBACTAM 3.375 GM in DEXTROSE/WATER 1 50ML.BAG IVPB SCH (08:46)
[2016-10-25] MEDS: HEPARIN SODIUM,PORCINE 5,000 UNIT/ML 1 ML VIAL SQ SCH (08:46)
[2016-10-25] MEDS: PANTOPRAZOLE 40 MG/10 ML VIAL IVP SCH (08:46)
--- NOTE | 2016-10-25 13:22 | P.DS ---
Providers Date of admission: 10/18/16 22:59 Expected date of discharge: 10/25/16 Attending physician: Gilbert Wu Consults: 10/20/16 11:11 Consult Physician Routine Consulting Provider: Navdeep Sanon Consult Reason/Comments: Medical management Do you want consulting provider notified?: Yes Primary care physician: Gt Nate Layton Hospital Course: This a 70-year-old male who was admitted to the hospital complaints of small bowel obstruction. Patient's workup found have complete small bowel obstruction. Underwent exposure laparotomy is found have a right colon cancer. Patient underwent right colectomy. Please see hospital chart for details. Procedures: Right colectomy Patient Condition at Discharge: Good Plan - Discharge Summary New Discharge Prescriptions: New HYDROcodone/APAP 7.5-325MG [[place] 7.5] 1 each PO Q4H PRN #60 tab PRN Reason: Pain No Action Vit C/E/Zn/Coppr/Lutein/Zeaxan [Preservision Areds 2 Softgel] 1 cap PO DAILY Discharge Medication List Vit C/E/Zn/Coppr/Lutein/Zeaxan [Preservision Areds 2 Softgel] 1 cap PO DAILY [History] HYDROcodone/APAP 7.5-325MG [[place] 7.5] 1 each PO Q4H PRN #60 tab 10/25/16 [Rx] Follow up Appointment(s)/Referral(s): Gt Sullivan MD [Primary Care Provider] - 10/31/16 1:45 pm Gilbert Wu MD [STAFF PHYSICIAN] - 11/01/16 3:20 pm Activity/Diet/Wound Care/Special Instructions: MAY SHOWER DAILY NO TUBS/NO POOLS NOTIFY DR WU WITH SIGNS OR SYMPTOMS OF INFECTION-FEVER OVER 101, INCREASED REDNESS /SWELLING AT SURGICAL SITE NO HEAVY LIFTING, PUSHING, PULLING OVER 10 LBS FOR 6 WEEKS NO DRIVING UNTIL CLEARED BY SURGEON LEAVE DRESSING ON UNTIL FOLLOW UP Discharge Disposition: HOME SELF-CARE
--- NOTE | 2016-10-25 16:23 | PN ---
DATE OF SERVICE: 10/25/2016 This 70-year-old gentleman was admitted to the hospital after partial small bowel obstruction improved significantly. No chest pain. No palpitations. The patient also had some anuria. The patient is being closely monitored. Renal function has been normal. The patient has occasional cough. No chest pain or palpitation. No fever. On exam, alert and oriented x3. Pulse is 77, blood pressure 142/70, respirations 16, temperature 98 degrees, pulse ox 94% on 2 L. HEENT: Conjunctivae normal. Oral mucosa moist. NECK: No jugular venous distention. No carotid bruit. No lymph node enlargement. RESPIRATORY: Breath sounds diminished at the bases. A few scattered rhonchi and crackles. ABDOMEN: Soft, nontender. No mass palpable. LEGS: No edema. No swelling. CENTRAL NERVOUS SYSTEM: No focal deficits. LABS: CBC within normal limits. ASSESSMENT: 1. Partial small bowel obstruction. 2. Anuria secondary to dehydration. 3. Left lung atelectasis versus pneumonia. 4. Hypovolemic hyponatremia. 5. Possible chronic obstructive pulmonary disease. 6. Mild hypoalbuminemia. 7. FULL CODE. RECOMMENDATIONS AND DISCUSSION: In this 70-year-old gentleman who presented with multiple complex medical issues we will monitor the patient closely. Continue current medications, symptomatic treatment. I recommend course of antibiotics, bronchodilators, and closely follow with the primary physician in the outpatient setting. Further recommendations per surgery. Further recommendations to follow.
== END 2016-10-25 14:26 | disposition home or self-care (01) | DRG 329 ==
LOC: EC 19:57 → 3SUR 22:59
PROVIDERS: ADMIT Surgery; ATTEND Surgery
PROC: 0DBS0ZZ (ICD-10-PCS; 2016-10-21)
PROC: 0WQF0ZZ Repair Abdominal Wall, Open Approach (ICD-10-PCS; 2016-10-21)
PROC: 00HU33Z Insertion of Infusion Device into Spinal Canal, Percutaneous Approach (ICD-10-PCS; 2016-10-21)
PROC: 3E0R3NZ Introduction of Analgesics, Hypnotics, Sedatives into Spinal Canal, Percutaneous Approach (ICD-10-PCS; 2016-10-21)
PROC: 0DTF0ZZ Resection of Right Large Intestine, Open Approach (ICD-10-PCS; principal; 2016-10-21 07:30)
DX: C18.2 Malignant neoplasm of ascending colon (principal); J18.9 Pneumonia, unspecified organism; N17.9 Acute kidney failure, unspecified; E87.1 Hypo-osmolality and hyponatremia; K42.0 Umbilical hernia with obstruction, without gangrene; J44.0 Chronic obstructive pulmonary disease with (acute) lower respiratory infection; J98.11 Atelectasis; E88.09 Other disorders of plasma-protein metabolism, not elsewhere classified; E86.0 Dehydration; F17.200 Nicotine dependence, unspecified, uncomplicated; K43.9 Ventral hernia without obstruction or gangrene; R09.02 Hypoxemia
CPT/HCPCS: 71010; 74000; 74176; 80048; 80053; 85025; 88305; 88309; 93005; 96374; 99285

== ENCOUNTER → 2017-08-02 | Outpatient (CLI) | payer MEDICARE ==
[2017-08-02 11:33] LABS: Blood Urea Nitrogen 17 mg/dL (9-20)
--- NOTE | 2017-08-02 17:55 | CT ---
EXAMINATION TYPE: CT ChestAbdPelvis w con DATE OF EXAM: 08/02/2017 INDICATION: Follow up colon and prostate cancer COMPARISON: 04/19/2017 CT DLP: 750.6 mGycm CONTRAST: Performed with Oral Contrast and with IV Contrast, patient injected with 100 mL of Omnipaque 300. TECHNIQUE: Axial images at 5 mm thick sections. Reconstructed images in the coronal plane. Delayed images through the kidneys. FINDINGS: CT CHEST: Portion of the thyroid visualized is normal. Vocal cord level appear symmetrical. Subglottic airway i s unremarkable. No suspicious lung nodules or focal infiltrates are present. Stable scarring is at the lung apices bi laterally. No enlarged mediastinal or hilar adenopathy is evident. Scattered small lymph nodes are in the trache al space and aortopulmonic window. The ascending aorta diameter at the level of the main pulmonary artery is 3.4 cm. The main pulmonary artery diameter at the bifurcation is 2.[address] ABDOMEN: Liver: Normal Spleen: Normal Pancreas: Normal Adrenal glands: The adrenal glands are normal. Gallbladder: Normal Kidneys: No masses are evident. No hydronephrosis is present. No cysts are present. Delayed images were obtained through the kidneys, which remain unremarkable. Aorta: Vascular calcification is within the aorta. Inferior vena cava: Normal. CT PELVIS: There is a small anterior abdominal wall hernia in the periumbilical region containing loo ps of colon without evidence of obstruction. Loops of bowel within the abdomen and pelvis are normal. There are loops of bowel which are incom pletely distended or lack oral contrast limiting their evaluation. Diverticulosis is within the sigmo id colon. Appendix: Normal as visualized. Urinary bladder: Normal. Genitourinary structures: Prostatectomy surgical clips are present. The prostate is absent. Mesenteri c fat is within the inguinal regions. Osseous structures: No suspicious lytic or sclerotic lesions. Degenerative disc changes and facet deg enerative changes are noted. IMPRESSIONS: 1. Small anterior abdominal wall hernia with bowel without obstruction. 2. No suspicious changes to suggest recurrent or metastatic disease. 3. Diverticulosis without acute diverticulitis within the sigmoid colon.
== END | disposition home or self-care (01) ==
LOC: RADCTMAIN 10:53
PROVIDERS: ATTEND Internal Medicine Hematology & Oncology
DX: C18.2 Malignant neoplasm of ascending colon (principal); K43.9 Ventral hernia without obstruction or gangrene; K57.30 Diverticulosis of large intestine without perforation or abscess without bleeding
CPT/HCPCS: 82565; 84520; 71260; 74177; 36415; Q9967

== ENCOUNTER → 2017-09-06 | Outpatient (CLI) | payer MEDICARE ==
[2017-09-05 13:54] VITALS: BMI 24.4
[2017-09-06 13:28] VITALS: BP 146/77; PULSE 99; RESP 18; TEMP 98
--- NOTE | 2017-09-06 13:56 | P.HPIM ---
History of Present Illness H&P Date: 09/06/17 Chief Complaint: low back and left leg pain This is a 71-year-old patient referred by Dr. Sullivan for chronic pain in low back and LLE going down to toes with numbness/tingling/weakness (chronic). Patient has been taking medications from primary care physician including Neurontin medications with some relief. Patient denies adverse drug effects from medications. Patient also denies new-onset weakness, bowel/bladder incontinence, or any other signs or symptoms of cauda equina syndrome. There are no signs of acute intoxication, and no indications of medication diversion or overuse. Patient notes that pain worsens significantly with standing, walking, bending, lifting, and twisting and improves with rest and medication. Patient has used several types of medications for pain, including NSAIDS, OPIOIDS, TRAMADOL. Patient HAS NOT had surgery. Patient HAS had injections previously approximately 8 years ago and they helped him substantially. He believes these are epidural injections. Patient HAS NOT had physical therapy recently. In addition to above, 13-point review of systems is also negative for chest pain , shortness of breath, changes in vision, changes in hearing, new onset weakness , abdominal pain, diarrhea, extreme fatigue, malaise, fever, skin changes, homicidal or suicidal ideation, or bowel or bladder incontinence. Vital Signs: Reviewed in EMR Gen: WDWN, AAOx3, NAD HEENT: NCAT, EOMI, hearing grossly normal Pulm: resp unlabored Abd: soft, NT, ND Neck: supple, trachea midline ROM in flexion lumbar spine: reduced ROM in extension lumbar spine: reduced Lumbar paravertebral tenderness: + Facet loading: + bilateral, L > R SI joint tenderness: neg Blaine's test: neg Straight leg raise: + LLE at 5 degrees Past Medical History Past Medical History: Cancer Additional Past Medical History / Comment(s): PROSTATE CANCER (2008), COLON CANCER (2017 WITH LAST CHEMO APR 2017)., STATES PAIN LEFT HIP AND LEG- LEFT LEG GOES NUMB AND HE FALLS., STATES SCAB ON LEFT ELBOW FROM FALL., DRINKS ENSURE DAILY. History of Any Multi-Drug Resistant Organisms: None Reported Past Surgical History: Appendectomy, Bowel Resection, Prostate Surgery Additional Past Surgical History / Comment(s): CATARACTS Past Anesthesia/Blood Transfusion Reactions: No Reported Reaction Past Psychological History: No Psychological Hx Reported Smoking Status: Current every day smoker Past Alcohol Use History: Daily Additional Past Alcohol Use History / Comment(s): SMOKES 1/2 PPD (HX OF 1-2 PPD) . SMOKING FOR 19 YEARS. DRINKS 2 BEERS DAILY. Past Drug Use History: None Reported - Past Family History Son(s) Family Medical History: Cancer Additional Family Medical History / Comment(s): COLON CANCER Medications and Allergies Home Medications Medication Instructions Recorded Confirmed Type Vit C/E/Zn/Coppr/Lutein/Zeaxan 2 cap PO DAILY 10/18/16 09/06/17 History [Preservision Areds 2 Softgel] Albuterol Inhaler [Ventolin Hfa 1 - 2 puff INHALATION Q6HR PRN 09/05/17 History Inhaler] Naproxen Sodium [Aleve] 220 mg PO BID PRN 09/05/17 09/06/17 History Gabapentin [Neurontin] 400 mg PO TID #90 cap 09/06/17 Rx Allergies Allergy/AdvReac Type Severity Reaction Status Date / Time No Known Allergies Allergy Verified 09/06/17 13:18 Physical Exam Vitals: Vital Signs Temp Pulse Resp BP Pulse Ox 09/06/17 13:18 98.0 F 99 18 146/77 97 Intake and Output 09/05/17 09/06/17 09/06/17 22:59 06:59 14:59 Other: Weight 73.936 kg Results Comments: MRI lumbar spine without contrast dated 10/13/2011 demonstrates degenerative changes of the facet joint at L1-L2 and L2-L3. The L3-L4 level is mild right foraminal narrowing due to a bulging disc without nerve root compression within the foramen. There are also degenerative changes within the facet joints. At the L4-L5 level and L5-S1 level there is to keep diffusely bulging disc effacing the thecal sac. There is a right foraminal disc protrusion mildly contacting the right L4 nerve root within the foramen at the L4-L5 level. At the L5-S1 level there is a central and right paracentral disc protrusion mildly contacting the right S1 nerve root. There is also moderately severe left foraminal and right foraminal narrowing that is compressing the left L5 nerve root within the foramen and also the right L5 nerve root within the foramen. Assessment and Plan (1) Colon cancer Current Visit: Yes Status: Chronic Code(s): C18.9 - MALIGNANT NEOPLASM OF COLON, UNSPECIFIED SNOMED Code(s): 371688506 (2) Lumbar radiculopathy Current Visit: Yes Status: Chronic Code(s): M54.16 - RADICULOPATHY, LUMBAR REGION SNOMED Code(s): 915625883 (3) Lumbar disc herniation Current Visit: Yes Status: Chronic Code(s): M51.26 - OTHER INTERVERTEBRAL DISC DISPLACEMENT, LUMBAR REGION SNOMED Code(s): 360964475 Plan: 1. Explanation: Opioid and psychological risk scores were reviewed. Diagnoses , prognoses, and multiple treatment options including but not limited to physical therapy, interventional therapies, adjuvant medical therapies, narcotic medication therapies, and surgery were discussed with the patient and all questions were answered to the patient's satisfaction. 2. Opioid agreement: no opioids prescribed today 3. Counseling: The patient was counseled extensively on SMOKING CESSATION, BODY MASS INDEX, EXERCISE. Specifically, the patient was instructed regarding the importance of smoking cessation, weight control, and exercise in the context of both chronic pain and overall health. 4. Procedures: LESI series L4-L5 if possible 5. Consultations: none 6. Investigations: MRI lumbar spine 7. Medications: increase gabapentin to 400 mg TID #90 with one refill 8. Disposition: f/u for procedure as scheduled after MRI completed PQRS measures: 1-Patient's medications are documented in the chart. 2-Tobacco use is positive, counseling given 3-Patient has not had a pneumococcal vaccine. 4-Advanced care planning discussed, patient unable to give. 5-Opioid contract NOT signed with the patient. 6-Pain positive, follow-up visit or procedure scheduled 7-Patient's blood pressure measured and documented, and patient will follow up with the primary care due to hypertension. 8-Patient's weight was measured, and body mass index ABOVE the normal limits, and counseling was done. Patient instructed to follow up with PCP. 9-Patient WAS NOT identified as an unhealthy alcohol user. Time with Patient: Greater than 30
== END | disposition home or self-care (01) ==
LOC: PNWHC3 12:46
PROVIDERS: ATTEND Anesthesiology
DX: G89.29 Other chronic pain (principal); M51.16 Intervertebral disc disorders with radiculopathy, lumbar region; C18.9 Malignant neoplasm of colon, unspecified; Z79.899 Other long term (current) drug therapy; Z87.891 Personal history of nicotine dependence; Z79.1 Long term (current) use of non-steroidal anti-inflammatories (NSAID)
CPT/HCPCS: 99211

== ENCOUNTER → 2017-10-06 | Outpatient (CLI) | payer MEDICARE ==
[2017-10-06 14:43] LABS: Blood Urea Nitrogen 13 mg/dL (9-20)
--- NOTE | 2017-10-06 16:49 | MR ---
EXAMINATION TYPE: MR lumbar spine wo/w con DATE OF EXAM: 10/06/2017 COMPARISON: NONE HISTORY: Lumbar ago with left-sided sciatica per order. Left lower extremity pain with hx prostate ca 2008, colon ca 2017 per patient. TECHNIQUE: Multiplanar, multisequence images of the lumbar spine is performed without and with IV contrast, util izing 7 mL intravenous Gadavist FINDINGS: Sagittal images of the lumbar spine show vertebral body heights and alignment to appear sat isfactory. There is multilevel disc desiccation seen. There is mild to moderate disc space narrowing L4-L5 level. There is advanced disc space during a L5-S1 level. Posterior disc herniations are seen a t these levels on sagittal images. The conus medullaris is slightly high in position ending mid T12 level. No suspicious signal is seen. No suspicious clumping of lumbosacral nerve roots is identified . There is mild to moderate multilevel anterior spurring most prominent lower lumbar levels. Bone mar row signal intensity is overall slightly heterogeneous. No suspicious enhancement is noted. Axial images show the T12-L1, L1-L2, and L2-L3 levels to appear within normal limits. Axial images at L3-L4 levels show [id number] broad disc bulge and mild facet degenerative clayton es with ligamentum flavum hypertrophy. Spinal canal is grossly preserved. Bilateral neural foramina a re patent. Axial images at L4-L5 level show mild marked facet degenerative changes bilaterally. There is broad d isc bulge effacing the anterior thecal sac. There is advanced left and moderate right-sided neural fo raminal narrowing. Encroachment on the left L4 nerve is felt present seen best on sagittal images 3 a nd 4 confirmed on axial images 11 and 12. Axial images at L5-S1 level shows moderate facet degenerative changes bilaterally. There is broad dis c bulge identified. There is moderate to advanced bilateral neural foraminal narrowing with some encr oachment on both L5 nerves difficult to exclude on sagittal images 3 and 14 respectively. No suspicious retroperitoneal findings are identified. IMPRESSION: Multilevel degenerative changes in lumbar spine most prominent at L4-L5 and L5-S1 levels. Disc herniation L4-L5 level appears to efface exiting left L4 nerve. There is encroachment on bilate ral L5 nerves at L5-S1 level. Further details are noted as discussed above.
== END ==
LOC: RADMRIMAIN 14:02
PROVIDERS: ATTEND Family Medicine
DX: M99.73 Connective tissue and disc stenosis of intervertebral foramina of lumbar region (principal); M51.26 Other intervertebral disc displacement, lumbar region; M47.817 Spondylosis without myelopathy or radiculopathy, lumbosacral region; M24.28 Disorder of ligament, vertebrae
CPT/HCPCS: 82565; 84520; 72158; 36415; A9581

== ENCOUNTER 2017-11-03 08:32 | Day surgery (SDC) | payer MEDICARE ==
[2017-11-01 09:11] VITALS: BMI 24.6
[~2017-11-03 08:32] MED LIST: LACTATED RINGERS 1,000 ML IV SCH
[2017-11-03 08:55] VITALS: TEMP 97.2
[2017-11-03] MEDS ORDERED: LIDOCAINE 1% 20 ML VIAL (10MG/ML) FOR IV START INTRADERMA ONE (09:01)
[2017-11-03] MEDS ORDERED: PROPOFOL 10 MG/ML 20 ML VIAL IV ONE (09:18)
--- NOTE | 2017-11-03 09:22 | P.GSHP ---
History of Present Illness H&P Date: 11/03/17 Chief Complaint: History of colon cancer This is a 71-year-old male who has history of colon cancer. Patient presents today for colonoscopy. Patient has had a previous right colectomy. Past Medical History Past Medical History: Cancer Additional Past Medical History / Comment(s): PROSTATE CANCER (2007), COLON CANCER (2016 WITH LAST CHEMO APR 2017)., STATES PAIN LEFT HIP AND LEG- LEFT LEG GOES NUMB AND HE FALLS., DRINKS ENSURE DAILY. History of Any Multi-Drug Resistant Organisms: None Reported Past Surgical History: Appendectomy, Bowel Resection, Prostate Surgery Additional Past Surgical History / Comment(s): CATARACTS, prostatectomy Past Anesthesia/Blood Transfusion Reactions: No Reported Reaction Smoking Status: Current every day smoker - Past Family History Son(s) Family Medical History: Cancer Additional Family Medical History / Comment(s): COLON CANCER Medications and Allergies Home Medications Medication Instructions Recorded Confirmed Type Vit C/E/Zn/Coppr/Lutein/Zeaxan 2 cap PO DAILY 10/18/16 11/01/17 History [Preservision Areds 2 Softgel] Acetaminophen Tab [Tylenol Tab] 500 mg PO Q6H PRN 11/01/17 11/03/17 History Allergies Allergy/AdvReac Type Severity Reaction Status Date / Time No Known Allergies Allergy Verified 11/03/17 08:47 Surgical - Exam Vital Signs Temp Pulse Resp BP Pulse Ox 97.2 F L 100 16 139/76 95 11/03/17 08:54 11/03/17 08:54 11/03/17 08:54 11/03/17 08:54 11/03/17 08:54 - General well developed, no distress - Eyes PERRL - ENT normal pinna - Neck no masses - Respiratory normal expansion - Cardiovascular Rhythm: regular - Abdomen Abdomen: soft, non tender Assessment and Plan Assessment: History of right colon cancer. We'll perform colonoscopy.
--- NOTE | 2017-11-03 09:47 | P.OP ---
Date of Procedure: 11/03/17 Preoperative Diagnosis: History of right colon cancer Postoperative Diagnosis: Multiple colonic polyps of 20 cm Diverticulosis Procedure(s) Performed: Colonoscopy Anesthesia: MAC Surgeon: Gilbert Wu Pathology: other (Colon polyps at 20 cm) Condition: stable Disposition: PACU Description of Procedure: The patient's placed on the endoscopy table in the lateral position. He received IV sedation. Digital rectal exam was performed which revealed no abnormalities. The flexible colonoscope was then placed patient anus and passed throughout the entire colon. The ileocolonic anastomosis visualized. The transverse colon appeared normal. The descending and sigmoid colon had moderate diverticular changes. Scope was then brought back the rectum and the 20 cm alethea there were 2 punctate polyps were snared and removed. Scope was then withdrawn for patient.
[2017-11-03 09:53] VITALS: BP 106/63; PULSE 80
[2017-11-03 10:10] VITALS: RESP 18
--- NOTE | 2017-11-07 12:11 | CDI ---
Outpatient Documentation Clarification Form Date: 11/07/17 CDS/Staff Mechanical Engineer Name: Edna Solano Phone: If any questions, call Marichuy Ramirez Rn Occupational at [phone] Patient Name: Pal Silvestre Admit Date: 11/03/17 Discharge Date: 11/03/17 ATTENTION: The [facility] Coding Staff appreciate your assistance in clarifying documentation. Please respond to the clarification below the line at the bottom and electronically sign. The [facility] Coding staff will review the response and follow-up if needed. Please note: Queries are made part of the Legal Health Record. If you have any questions, please contact the Rn Occupational. Dear Dr. Wu, What part of the colon were the polyps found in? I would generally assume that polyps found at 20CM were in the sigmoid, but considering the patient had a prior colectomy, I dont want to assume that. Please specify below. Thank you for your kind consideration. MTDD
== END 2017-11-03 10:15 | disposition home or self-care (01) ==
LOC: ORWHC2ENDO 08:32
PROVIDERS: ATTEND Surgery
DX: Z12.11 Encounter for screening for malignant neoplasm of colon (principal); D12.5 Benign neoplasm of sigmoid colon; K57.30 Diverticulosis of large intestine without perforation or abscess without bleeding; Z85.038 Personal history of other malignant neoplasm of large intestine; Z90.49 Acquired absence of other specified parts of digestive tract; Z85.46 Personal history of malignant neoplasm of prostate; Z92.21 Personal history of antineoplastic chemotherapy; Z90.79 Acquired absence of other genital organ(s); F17.210 Nicotine dependence, cigarettes, uncomplicated
CPT/HCPCS: 88305; 45385; J2704

== ENCOUNTER → 2017-11-06 | Outpatient (CLI) | payer MEDICARE ==
[2017-11-01 09:16] VITALS: BMI 24.6
[2017-11-06 12:17] VITALS: BP 139/75; PULSE 102; RESP 16
--- NOTE | 2017-11-06 12:44 | P.PAINPG ---
Subjective Progress Note Date: 11/06/17 This is follow-up visit for this patient with a history of severe and chronic low back pain , diagnosed with lumbar radiculopathy lumbar disc herniation, and lumbar spondylosis with facet arthropathy, he continued to have severe low back pain with radiation to the left lower extremity, patient had a new MRI done a few weeks ago, and it showed L4 5 and L5-S1 lumbar bulging disc disease and lumbar facet arthropathy multilevel The patient currently on Neurontin 400 mg 3 times a day Patient denies any side effect of the medication , patient denies any excessive drowsiness or sleepiness, patient denies any suicidal ideation, Patient reported that the current medication is helping to control the pain and improve the activity of daily livings, Patient denies any motor or sensory deficit, denies any change in the bowel movement or urination, patient denies any fever or night sweats. Objective - Vital Signs Vital signs: Vital Signs Temp Pulse 102 H 11/06/17 12:12 Resp 16 11/06/17 12:12 BP 139/75 11/06/17 12:12 Pulse Ox - Exam Physical Examinations : 1-Constitutiona : Cooperative , not in acute distress . 2-HEENT : nech ; supple , no Lymphadenopathy , normal thyroid size . eyes : no ptosis , no icterus , no photophobia . ENT : normal of hearing , normal oropharynx , no Thrush . 3- Respiratory : Chest clear to auscultations Bilaterally , no wheezing , no Rhonchi . 4- Cardiovascular : regular rate and rhythem , S1 , S2 , no S3 , no S4. 5- Gastrointestinal : abdomen soft no tenderness , bowel sounds , no organomegally . 6- Genitourinary : Defferred . 7- neurologic : Cranial nerve II to XII intact , no focal neurological deffecit . 8-psychatric : alert , oriented X 3 , appropriate affect , intact judgment and insight . 9-Lymphatic : no Lymphadenopathy . 10- musculoskeltal : , Lumber spine = normal moter stegnth lower extremities ,thigh and legs .5/5 deep tendon reflexes : normal Knee Jerk , normal ankle Jerk . lumber facet Loading Test positive strait leg raising test positive at 60 degree Right , positve at 30 degree Left Fabere test positive Right and positive Left Assessment and Plan Plan: Assessment and plan= 1-lumbar radiculopathy. 2-lumbar disc herniation. 3- lumbar spondylosis and lumbar facet arthropathy without myelopathy Patient will be good candidate to have L4 5 lumbar epidural steroid injection under fluoroscopy guidance ( left paramedian approach ) Will do the procedure twice and if she continued to have low back pain then we will schedule him to have diagnostic medial branch block lumbar area. A prescription refill given for Neurontin 400 mg 3 times a day dispense 90 with 2 refills Time with Patient: Less than 30 PQRS Measure Charge Sheet Measure #130: Documentation of Current Meds in Medical Chart: Patient's medications documented in chart Measure #226: Tobacco Use: Screen & Cessation Intervention: Pt screened for tobacco use AND intervention given Measure #111: Pneumonia Vaccination: Pneumococcal vaccine administered or previously received Measure #47: Advance Care Plan: Advance care planning discussed & documented, plan or surrogate given Measure #412: Opioid Treatment Agreement: No documentation of signed opioid treatment agreement Measure #408: Opioid Therapy Follow-up Evaluation: Patient had NO f/u eval minimum every 3 months during opioid therapy Measure #317: Preventitive Care & Scrn High Bld Press & F/U: Normal blood pressure, f/u not required Measure #128: Body Mass Index (BMI) Screening & Follow-up: BMI documented ABOVE normal parameters - f/u documented Measure #131: Pain Assessment & Follow-up: Pain positive & plan documented Measure #431: Unhealthy Alcohol Use Preventative Care & Scrn: Patient not identified as an unhealthy alcohol user PQRS Narrative: Smoking Status Current every day smoker Blood Pressure 139/75 Pain Intensity [Left Hip] 7 Scale Used Numeric (1 - 10) Hx Alcohol Use (MH) Yes: 2-3 BEERS DAILY Home Medications: Ambulatory Orders Vit C/E/Zn/Coppr/Lutein/Zeaxan [Preservision Areds 2 Softgel] 2 cap PO DAILY Acetaminophen Tab [Tylenol Tab] 500 mg PO Q6H PRN 11/01/17 Gabapentin [Neurontin] 400 mg PO TID #90 capsule 11/06/17 Controlled Substance Measures - Controlled Substance Measures Is patient prescribed a controlled substance at discharge?: No When asked, does pt state using other controlled substances?: No If prescribed controlled substance>3 days was MAPS reviewed?: No If Rx opioid, was Start Talking consent form obtained?: No If opioid is for acute pain is fill amount 7 days or less?: No Was information provided regarding opioid addiction?: No
== END | disposition home or self-care (01) ==
LOC: PNWHC3 11:45
PROVIDERS: ATTEND Specialist
DX: M51.16 Intervertebral disc disorders with radiculopathy, lumbar region (principal); M46.96 Unspecified inflammatory spondylopathy, lumbar region; M47.26 Other spondylosis with radiculopathy, lumbar region; F17.200 Nicotine dependence, unspecified, uncomplicated; Z79.899 Other long term (current) drug therapy
CPT/HCPCS: 99211

== ENCOUNTER 2017-11-23 07:48 | Day surgery (SDC) | payer MEDICARE ==
[2017-11-16 14:15] VITALS: BMI 23.6
[2017-11-23 08:42] VITALS: RESP 16; TEMP 97.2
[2017-11-23] MEDS ORDERED: LIDOCAINE 1% 20 ML VIAL (10MG/ML) FOR IV START INTRADERMA ONE (08:46)
--- NOTE | 2017-11-23 09:00 | P.PCN ---
Date of Procedure: 11/23/17 Surgeon: Rk Zhang Description of Procedure: PREOPERATIVE DIAGNOSIS: Left lumbar radiculopathy POSTOPERATIVE DIAGNOSIS: Same PROCEDURE Lumbar epidural steroid injection under fluoroscopic guidance at the left L4 5 level. ANESTHESIA: Local with 1% lidocaine 3 ml and IV sedation with Versed 2 mg EBL: Minimal PROCEDURE INDICATION: []. PROCEDURE DESCRIPTION / TECHNIQUE: The patient was seen and identified in the preoperative area. Risks, benefits , complications including but not limited to infections ,bleeding ,allergic reaction to the medications ,nerve damage and not complete pain relief , and alternatives were discussed with the patient. The patient agreed to proceed with the procedure and signed the consent. IV was started, and vital signs were stable. Patient was taken to the OR and time out was completed. The patient was placed in the prone position on procedure table and a pillow was placed under the abdomen to reduce lumbar lordosis. The lumbosacral area was prepped and draped in the usual sterile fashion.ere closely monitored during the procedure. Conscious sedation was used during the procedure to decrease patients anxiety. Vital signs was monitered during the entire procedure. Using anterior-posterior fluoroscopy, the L5-S1 interlaminar space was identified and the skin over this site was marked and then infiltrated with 1% lidocaine subcutaneously. Subsequently, a 20-gauge Tuohy epidural needle was inserted and advanced toward the epidural space using the Loss of resistance technique and guided by AP and lateral fluoroscopy. The correct needle position in the epidural space was verified with the injection of contrast and observing an excellent epidurogram with the epidural spread of the dye, after negative aspiration for blood and CSF and in the absence of paresthesias. Again after negative aspiration, a 6 ml mixture containing 80 mg of Depo-Medrol was injected and a washout of epidurogram was seen. Needle was withdrawn intact, skin was cleansed, and bandages were applied. COMPLICATIONS: None DISPOSITION / PLANS: The patient was placed in a supine position and transferred to the recovery area in a stable condition for observation. There was no evidence of lower extremity motor or sensory deficit after the procedure. Patient was discharged from the recovery room after meeting discharge criteria. Home discharge instructions were given to the patient by the staff. The patient was reexamined prior to discharge. The patient will schedule a follow up in 2-4 weeks for repeat of this procedure.
[2017-11-23 09:56] VITALS: BP 159/85; PULSE 80
--- NOTE | 2017-11-23 10:38 | FL ---
Fluoroscopy HISTORY: Pain 3 seconds fluoroscopy time supplied to the referring clinician. 1 intraoperative C-arm images docume nt the procedure. See dictated report from anesthesia.
== END 2017-11-23 10:11 | disposition home or self-care (01) ==
LOC: ORPAIN 07:48
PROVIDERS: ATTEND Pain Medicine Pain Medicine
DX: G89.29 Other chronic pain (principal); M51.16 Intervertebral disc disorders with radiculopathy, lumbar region; M47.26 Other spondylosis with radiculopathy, lumbar region; F17.200 Nicotine dependence, unspecified, uncomplicated; Z79.899 Other long term (current) drug therapy
CPT/HCPCS: 62323; J2250; J1030

== ENCOUNTER → 2017-11-27 | Outpatient (CLI) | payer MEDICARE ==
[2017-11-27 11:09] LABS: Blood Urea Nitrogen 15 mg/dL (9-20)
--- NOTE | 2017-11-27 13:14 | CT ---
EXAMINATION TYPE: CT ChestAbdPelvis w con DATE OF EXAM: 11/27/2017 COMPARISON: 08/02/2017 and 04/19/2017 HISTORY: 72-year-old male follow-up Colon Cancer TECHNIQUE: Contiguous axial scanning of the chest, abdomen, and pelvis performed with IV Contrast, pa tient injected with 100 ml mL of Isovue 300. Delayed images through the kidneys were obtained. Bertrand l/sagittal reconstructions performed. CT DLP: 843.50 mGycm Automated exposure control for dose reduction was used. FINDINGS: Chest: Heart normal size without pericardial effusion. Coronary vessel calcifications are present and are re markable for coronary artery disease. Aorta normal caliber with conventional arch vessel branching anatomy. Scattered small mediastinal lymph nodes are present. No thoracic lymphadenopathy by CT size criteria. Mild to moderate centrilobular emphysema in the upper lungs with biapical pleural parenchymal scarrin g. No suspicious pulmonary nodule or mass. No consolidation or pleural effusion. Minimal endobronchia l plugging of a segmental right lower lobe bronchus likely mucous and secretions. Some chronic pleura l parenchymal scarring at the base of the right middle lobe unchanged. ABDOMEN: Tiny hiatal hernia. No focal liver lesion or biliary ductal dilatation. Portal venous system is patent. Gallbladder, adrenal glands, kidneys, spleen, and mildly atrophic pancreas shows no gross abnormality . Mild atherosclerotic calcifications within the abdominal aorta and mild to moderate within the iliac arteries without aneurysm. No dilated small bowel, free fluid, or free air. No mesenteric or retroperitoneal lymphadenopathy. Partial right hemicolectomy with right-sided ileocolonic anastomosis. Oral contrast has progressed to the lower descending colon. There is left-sided colonic diverticulosis without pericolonic inflammat ory change. Pelvis: Bladder urine distended. Prostate gland surgically absent. Additional surgical clips along the dynamic balancer al inguinal chains and pelvic sidewalls. No abnormal fluid collection in the pelvis or pelvic lymphad enopathy. Bones: Mild degenerative changes at the hips. Degenerative changes mid to lower lumbar spine. No osseous bryce tructive process. Old healed right lateral rib fracture deformity or fourth rib, though new from 03/23. IMPRESSION: 1. STATUS POST PARTIAL RIGHT HEMICOLECTOMY WITH A RIGHT UPPER QUADRANT ILEOCOLONIC ANASTOMOSIS. NO EV IDENCE FOR METASTATIC DISEASE. 2. COPD WITH MILD TO MODERATE EMPHYSEMA AND THE UPPER LUNGS. 3. TINY HERNIA AND LEFT-SIDED COLONIC DIVERTICULOSIS. 4. HEALING TO HEALED RIGHT LATERAL FOURTH RIB FRACTURE DEFORMITY WAS PRESENT ON 08/02/2017 BUT IS NEW FROM 04/19/2017. CLINICALLY CORRELATE.
== END | disposition home or self-care (01) ==
LOC: RADCTMAIN 10:29
PROVIDERS: ATTEND Internal Medicine Hematology & Oncology
DX: J43.9 Emphysema, unspecified (principal); K57.30 Diverticulosis of large intestine without perforation or abscess without bleeding; K44.9 Diaphragmatic hernia without obstruction or gangrene; C18.2 Malignant neoplasm of ascending colon; Z98.0 Intestinal bypass and anastomosis status; Z90.49 Acquired absence of other specified parts of digestive tract
CPT/HCPCS: 82565; 84520; 71260; 74177; 36415; Q9967

== ENCOUNTER 2017-12-07 08:32 | Day surgery (SDC) | payer MEDICARE ==
[2017-12-04 14:40] VITALS: BMI 23.6
[2017-12-07 09:43] VITALS: TEMP 97.9
[2017-12-07] MEDS ORDERED: LACTATED RINGERS 1,000 ML IV ONE (09:43)
[2017-12-07] MEDS ORDERED: LIDOCAINE 1% 20 ML VIAL (10MG/ML) FOR IV START INTRADERMA ONE (09:49)
--- NOTE | 2017-12-07 10:51 | P.PCN ---
Date of Procedure: 12/07/17 Procedure(s) Performed: PREOPERATIVE DIAGNOSIS: 1- Lumbar herniated Disc Diseases 2-Lumbar spondylosis with Facet arthropathy without myelopathy. 3-lumbar radiculopathy. POSTOPERATIVE DIAGNOSIS: Same as preoperative diagnoses PROCEDURE 1. Lumbar epidural steroid injection under fluoroscopic guidance at the L4-5 level. 2. Lumbar epidurogram. ANESTHESIA: Local with 1% lidocaine 3 ml and , moderate sedation with intravenous Versed 2 mg. EBL: Minimal PROCEDURE INDICATION: The patient with low back pain and radiculitis symptoms unresponsive to conservative treatment. Fluoroscopy was used to optimize visualization of the needle placement and to maximize safety. PROCEDURE DESCRIPTION / TECHNIQUE: The patient was seen and identified in the preoperative area. Risks, benefits , complications including but not limited to infections ,bleeding ,allergic reaction to the medications ,nerve damage and not complete pain releife , and alternatives were discussed with the patient. The patient agreed to proceed with the procedure and signed the consent. IV was started, and vital signs were stable. Patient was taken to the OR and time out was completed. The patient was placed in the prone position on procedure table and a pillow was placed under the abdomen to reduce lumbar lordosis. The lumbosacral area was prepped and draped in the usual sterile fashion.ere closely monitored during the procedure. Conscious sedation was used during the procedure to decrease patients anxiety. Vital signs was monitered during the entire procedure. Using anterior-posterior fluoroscopy, the L4-5 interlaminar space was identified and the skin over this site was marked and then infiltrated with 1% lidocaine subcutaneously. Subsequently, a 20-gauge Tuohy epidural needle was inserted and advanced toward the epidural space using the ``Loss of resistance technique and guided by AP and lateral fluoroscopy. The correct needle position in the epidural space was verified with the injection of 2 mL of the water soluble contrast dye Isovue 200 contrast and observing an excellent epidurogram with the epidural spread of the dye, after negative aspiration for blood and CSF and in the absence of paresthesias. Again after negative aspiration, a 6 ml mixture containing 80 mg Depo-Medrol, and 2 ml of preservative free Normal Saline, and 2 ml of preservative free lidocaine 1% solution was injected and a washout of epidurogram was seen. Needle was withdrawn intact, skin was cleansed, and bandages were applied. COMPLICATIONS: None DISPOSITION / PLANS: The patient was placed in a supine position and transferred to the recovery area in a stable condition for observation. There was no evidence of lower extremity motor or sensory deficit after the procedure. Patient was discharged from the recovery room after meeting discharge criteria. Home discharge instructions were given to the patient by the staff. The patient was reexamined prior to discharge. The patient will schedule a follow up in the clinic in 2-4 weeks.
[2017-12-07] MEDS ORDERED: IV FLUID CONTINUATION 1,000 ML IV ONE (10:58)
[2017-12-07 10:59] VITALS: RESP 16
[2017-12-07 11:14] VITALS: BP 149/83; PULSE 78
--- NOTE | 2017-12-07 11:18 | FL ---
EXAMINATION TYPE: FL guided pain mgmt statistic DATE OF EXAM: 12/07/2017 COMPARISON: NONE HISTORY: Neck pain TECHNIQUE: Fluoroscopy. FINDINGS/IMPRESSION: Fluoroscopic guidance was provided during procedure performed by Dr. Crews. A total of 2 seconds of fluoroscopic time was utilized during the procedure and 1 spot images was ac quired demonstrating localization of the lumbar spine.
== END 2017-12-07 11:46 | disposition home or self-care (01) ==
LOC: ORPAIN 08:32
PROVIDERS: ATTEND Specialist
DX: M51.16 Intervertebral disc disorders with radiculopathy, lumbar region (principal); M47.26 Other spondylosis with radiculopathy, lumbar region; Z72.0 Tobacco use
CPT/HCPCS: 62323; J2250; J1030; Q9966

== ENCOUNTER → 2018-01-29 | Outpatient (CLI) | payer MEDICARE ==
[2018-01-29 12:52] VITALS: RESP 16
[2018-01-29 12:54] VITALS: BP 146/79; PULSE 83
--- NOTE | 2018-01-29 13:15 | P.PN ---
Subjective Progress Note Date: 01/29/18 Principal diagnosis: Lumbar spondylosis and lumbar radiculopathy This is a 72-year-old gentleman with history of lower back pain with radiation to the knees. The patient has weakness in his left leg and. She has been doing some exercises to improve his strength. He denies any bowel or bladder dysfunction. His pain improved significantly with 2 lumbar epidural steroid injections. Today, pt denies new-onset weakness, bowel/bladder incontinence, or any other signs or symptoms of cauda equina syndrome. There are no signs of acute intoxication, and no indications of medication diversion or overuse. In addition to above, 13-point review of systems is also negative for chest pain , shortness of breath, changes in vision, changes in hearing, new onset weakness , abdominal pain, diarrhea, extreme fatigue, malaise, fever, skin changes, homicidal or suicidal ideation, or bowel or bladder incontinence. Vital Signs: Reviewed in EMR Gen: AAOx3, NAD HEENT: PERRLA,hearing grossly normal Pulm: resp unlabored,CTA Heart:S1,S2, No Mur Neck: supple, trachea midline Neuro exam of the lower extremities: Areflexia, decreased muscle strength in the left leg to 4 out of 5 for left knee flexion and extension and left hip flexion Neuro: CN II-XII grossly intact, Imaging: Reviewed in EMR/chart Assessment: Lumbar spondylosis Lumbar radiculopathy Weakness in the left lower extremity Plan: 1. Explanation: Opioid and psychological risk scores were reviewed. Diagnoses , prognoses, and multiple treatment options including but not limited to physical therapy, interventional therapies, adjuvant medical therapies, narcotic medication therapies, and surgery were discussed with the patient and all questions were answered to the patient's satisfaction. 2. Opioid agreement: We do not prescribe opioids 3. Counseling: The patient was counseled extensively on SMOKING CESSATION, BODY MASS INDEX, EXERCISE. Specifically, the patient was instructed regarding the importance of smoking cessation, obesity, and exercise in the context of both chronic pain and overall health. 4. Procedures: May need lumbar epidural steroid injection when his pain gets worse 5. Consultations: I recommend that he sees a physical therapist to help improve his left leg strength 6. Investigations: None 7. Medications: Continue Neurontin 400 mg 3 times a day 8. Disposition: Return to clinic on an as-needed basis Objective - Vital Signs Vital signs: Vital Signs Temp Pulse 83 01/29/18 12:43 Resp 16 01/29/18 12:43 BP 146/79 01/29/18 12:43 Pulse Ox 97 01/29/18 12:43 Intake & Output 01/28/18 01/29/18 01/29/18 18:59 06:59 18:59 Weight 73.482 kg
== END | disposition home or self-care (01) ==
LOC: PNWHC3 11:54
PROVIDERS: ATTEND Anesthesiology
DX: M47.26 Other spondylosis with radiculopathy, lumbar region (principal); R53.1 Weakness; Z79.891 Long term (current) use of opiate analgesic
CPT/HCPCS: 99211

== ENCOUNTER → 2018-03-16 | Outpatient (CLI) | payer MEDICARE ==
[2018-03-16 11:13] LABS: Blood Urea Nitrogen 16 mg/dL (9-20)
--- NOTE | 2018-03-16 15:50 | CT ---
EXAMINATION TYPE: CT ChestAbdPelvis w con DATE OF EXAM: 03/16/2018 INDICATION: Colon CA, suspect mets COMPARISON: 11/27/2017 CT DLP: 1317 mGycm CONTRAST: Performed with Oral Contrast and with IV Contrast, patient injected with 100 mL of Isovue 300. TECHNIQUE: Axial images at 5 mm thick sections. Reconstructed images in the coronal plane. Delayed images through the kidneys. FINDINGS: CT CHEST: Portion of the thyroid visualized is normal. No suspicious lung nodules or focal infiltrates are present. No enlarged mediastinal or hilar adenopathy is evident. The ascending aorta diameter at the level of the main pulmonary artery is 3.4 cm. The main pulmonary artery diameter at the bifurcation is 2.[address] ABDOMEN: There is an anterior abdominal wall hernia in the supra umbilical region. This contains n ondilated loops of bowel with contrast. No obstruction is evident. Liver: There is moderate fatty infiltration of the liver. Spleen: Normal Pancreas: Normal Adrenal glands: The adrenal glands are normal. Gallbladder: Normal Kidneys: No masses are evident. No hydronephrosis is present. No cysts are present. Delayed images were obtained through the kidneys, which remain unremarkable. Aorta: Vascular calcification is within the aorta. Inferior vena cava: Normal. CT PELVIS: Loops of bowel within the abdomen and pelvis are normal. There are loops of bowel which are incom pletely distended or lack oral contrast limiting their evaluation. Multiple diverticuli without acute diverticulitis are within the proximal sigmoid colon. There is been a partial right hemicolectomy. Appendix: Not identified. No suspicious tubular structures or inflammatory changes are evident. Urinary bladder: Normal. Genitourinary structures: Prostate is not identified. Prostatectomy has likely been performed. Osseous structures: No suspicious lytic or sclerotic lesions. IMPRESSIONS: 1. No suspicious changes to suggest metastatic colon cancer. 2. Correlate for prior prostatectomy. 3. Diverticulosis without acute diverticulitis 4. Supraumbilical hernia containing nondilated loops of bowel.
== END ==
LOC: RADCTMAIN 10:37
PROVIDERS: ATTEND Internal Medicine Hematology & Oncology
DX: K57.90 Diverticulosis of intestine, part unspecified, without perforation or abscess without bleeding (principal); K42.9 Umbilical hernia without obstruction or gangrene
CPT/HCPCS: 82565; 84520; 71260; 74177; 36415; Q9967

== ENCOUNTER → 2018-08-01 | Outpatient (CLI) | payer MEDICARE ==
[2018-08-01 11:20] LABS: Blood Urea Nitrogen 14 mg/dL (9-20)
--- NOTE | 2018-08-01 12:47 | CT ---
EXAMINATION TYPE: CT ChestAbdPelvis w con DATE OF EXAM: 08/01/2018 COMPARISON: CT chest abdomen and pelvis March 16, 2018 and older CTs through 2016. HISTORY: Follow up of ascending colon cancer CT DLP: 965.9 mGycm. Automated Exposure Control for Dose Reduction was Utilized. CONTRAST: CT scan of the thorax, abdomen and pelvis is performed with oral and with IV Contrast, patient inject ed with 100 mL of Isovue 300. FINDINGS: LUNGS: Mild parenchymal scarring anterior right lung base remains present. There is mild emphysematou s change with mild to moderate biapical pleural/parenchymal scarring redemonstrated. No new suspiciou s nodules or masses are present. No pleural effusion or pneumothorax is noted bilaterally. No new kennedy picious focal infiltrate. MEDIASTINUM: There are no greater than 1 cm hilar or mediastinal lymph nodes. No cardiomegaly or pe ricardial effusion is seen. Moderate to severe 3 vessel coronary artery calcification is redemonstra ana paula which is noted marker for underlying coronary artery disease. OTHER: No additional significant abnormality is seen. LIVER/GB: Liver remains diffusely low dense suggesting diffuse fatty infiltration. PANCREAS: No significant abnormality is seen. SPLEEN: No significant abnormality is seen. ADRENALS: No significant abnormality is seen. KIDNEYS: No significant abnormality is seen. BOWEL: The oral contrast reaches level of the rectum. There are diverticula redemonstrated scattered throughout the colon most prominent in the left and sigmoid colon. No CT evidence for acute diverticu litis. There is poor visualization of sutures but suspected partial right-sided hemicolectomy. No kennedy picious small or large bowel dilatation seen on current study. There is persistent [place] ventral wall hernia along midline incision containing fat and mesenteric vessels as well as opacified small b owel loop without significant obstruction just above the umbilicus near axial image 78 for reference. GENITAL ORGANS: Surgical clips from total prostatectomy are redemonstrated. LYMPH NODES: No greater than 1cm abdominal or pelvic lymph nodes are appreciated. OSSEOUS STRUCTURES: Osseous structures are demineralized. Moderate to advanced disc space narrowing L 5-S1 level is redemonstrated. Small fat-containing left inguinal hernia is redemonstrated. 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 IMPRESSION: No new suspicious mass or adenopathy identified to suggest neoplastic recurrence.
== END | disposition home or self-care (01) ==
LOC: RADCTMAIN 09:47
PROVIDERS: ATTEND Internal Medicine Hematology & Oncology
DX: C18.2 Malignant neoplasm of ascending colon (principal)
CPT/HCPCS: 82565; 84520; 71260; 74177; 36415; Q9967

== ENCOUNTER → 2019-02-14 | Outpatient (CLI) | payer MEDICARE ==
[2019-02-14 15:23] LABS: Basophils # (A) 0.1 k/uL (0-0.2); Basophils % (A) 1 %; Eosinophils # (A) 0.1 k/uL (0-0.7); Eosinophils % (A) 1 %; HCT 38.1 % (39.0-53.0); HGB 13.1 gm/dL (13.0-17.5); Lymphocytes # (A) 2.4 k/uL (1.0-4.8); Lymphocytes % (A) 20 %; MCH 32.3 pg (25.0-35.0); MCHC 34.3 g/dL (31.0-37.0); MCV 94.2 fL (80.0-100.0); Mean Platelet Volume 7.2; Monocytes # (A) 0.7 k/uL (0-1.0); Monocytes % (A) 5 %; Neutrophils # (A) 8.7 k/uL (1.3-7.7); Neutrophils % (A) 72 %; Platelet Count 388 k/uL (150-450); RBC 4.05 m/uL (4.30-5.90); WBC 12.1 k/uL (3.8-10.6)
== END | disposition home or self-care (01) ==
LOC: LABPAT 14:31
PROVIDERS: ATTEND Surgery
DX: Z01.818 Encounter for other preprocedural examination (principal); Z01.812 Encounter for preprocedural laboratory examination; K43.0 Incisional hernia with obstruction, without gangrene; D64.9 Anemia, unspecified; F17.200 Nicotine dependence, unspecified, uncomplicated
CPT/HCPCS: 36415; 85025; 93005

== ENCOUNTER 2019-02-20 06:06 | Day surgery (SDC) | payer MEDICARE ==
[~2019-02-20 06:06] MED LIST changes: +DEXAMETHASONE SOD PHOSPHATE 10 MG/ML 1 ML VIAL IV ONE; +HEPARIN SODIUM,PORCINE 5,000 UNIT/ML 1 ML VIAL SQ ONE; -LACTATED RINGERS 1,000 ML IV SCH; +LIDOCAINE 1% 20 ML VIAL (10MG/ML) FOR IV START INTRADERMA PRN; +MIDAZOLAM 2 MG/2 ML VIAL IV PRN; +fentaNYL (PF) 50 MCG/ML 2 ML AMP IV PRN
[2019-02-20] MEDS: LACTATED RINGERS 1,000 ML IV SCH ×2 (06:38→17:00)
[2019-02-20] MEDS ORDERED: ONDANSETRON 4 MG/2 ML VIAL IVP ONE (06:45)
[2019-02-20] MEDS ORDERED: MIDAZOLAM PF (FBP) 2 MG/2 ML VIAL IVP ONE (07:10)
[2019-02-20] MEDS ORDERED: fentaNYL (PF) 50 MCG/ML 2 ML AMP IVP ONE (07:10)
[2019-02-20] MEDS ORDERED: LIDOCAINE 2%-EPI 1:100,000 20 ML VIAL ONE (07:44)
[2019-02-20] MEDS ORDERED: MIDAZOLAM 2 MG/2 ML VIAL ONE (07:44)
[2019-02-20] MEDS ORDERED: SUCCINYLCHOLINE CHLORIDE 100 MG/5 ML SYR IV ONE (07:44)
[2019-02-20] MEDS ORDERED: ROCURONIUM BROMIDE 10 MG/ML 10 ML VIAL IV ONE (07:44)
[2019-02-20] MEDS ORDERED: fentaNYL (PF) 50 MCG/ML 2 ML AMP ONE (07:44)
[2019-02-20] MEDS ORDERED: KETOROLAC 30 MG/ML 1 ML VIAL ONE (07:44)
[2019-02-20] MEDS ORDERED: LIDOCAINE 1% INJ 10MG/ML (20 ML MDV) ONE (07:44)
[2019-02-20] MEDS ORDERED: GLYCOPYRROLATE 0.2 MG/ML 2 ML VIAL ONE (07:44)
[2019-02-20] MEDS ORDERED: NEOSTIGMINE 1 MG/ML 10 ML VIAL ONE (07:44)
[2019-02-20] MEDS ORDERED: PROPOFOL 10 MG/ML 20 ML VIAL IV ONE (07:44)
[2019-02-20] MEDS ORDERED: ROPIVACAINE 5 MG/ML 30 ML VIAL ONE (07:44)
--- NOTE | 2019-02-20 07:48 | P.ANPRN ---
Procedure Note - Anesthesia - Nerve Block Performed Bilateral Rectus Abdominis Single Time Out Performed: Yes Date of Procedure: 02/20/19 Procedure Start Time: : Procedure Stop Time: : Location of Patient Procedure: PreOp Indication: Acute Post-Operative Pain Specifically requested for management of pain by DrAlejandra: Gilbert Wu Sedation Type: Sedate with meaningful contact maintained Preparation: Sterile Prep Position: Supine Catheter: None Needle Types: Pajunk Needle Gauge: 20 Ultrasound used to visualize needle placement: Yes Ultrasound used to observe medication spread: Yes Injectate: Other (see comment) (0.25% ropivacaine/0.5% lidocaine 25 mL each side) Adjunct: Epinephrine (see comment for dilution ratio) (1:200,000) Blood Aspirated: No Pain Paresthesia on Injection Noted: No Resistance on Injection: Normal Image Stored and Saved: Yes Events: Uneventful and Well Tolerated
--- NOTE | 2019-02-20 07:52 | P.GSHP ---
History of Present Illness H&P Date: 02/20/19 Chief Complaint: Incisional hernia This a 73-year-old male has developed an incisional hernia. Patient rents today for open repair. Patient has a midline scar with multiple incisional hernias. Past Medical History Past Medical History: Cancer Additional Past Medical History / Comment(s): PROSTATE CANCER (2007), COLON CANCER (2016 WITH LAST CHEMO APR 2017), History of Any Multi-Drug Resistant Organisms: None Reported Past Surgical History: Appendectomy, Bowel Resection, Prostate Surgery Additional Past Surgical History / Comment(s): CATARACTS, [facility]. PROSTATE SX Past Anesthesia/Blood Transfusion Reactions: No Reported Reaction Smoking Status: Current every day smoker - Past Family History Son(s) Family Medical History: Cancer Additional Family Medical History / Comment(s): COLON CANCER Medications and Allergies Home Medications Medication Instructions Recorded Confirmed Type No Known Home Medications 02/18/19 02/20/19 History Allergies Allergy/AdvReac Type Severity Reaction Status Date / Time No Known Allergies Allergy Verified 02/20/19 06:30 Surgical - Exam Vital Signs Temp Pulse Resp BP Pulse Ox 97.7 F 94 16 145/80 95 02/20/19 06:36 02/20/19 06:36 02/20/19 06:36 02/20/19 06:36 02/20/19 06:36 - General well developed, well nourished, no distress - Eyes PERRL - ENT normal pinna - Neck no masses - Respiratory normal expansion - Cardiovascular Rhythm: regular - Abdomen Abdomen: soft, non tender Hernia: incisional (Multiple incisional hernias located along midline scar) Assessment and Plan Assessment: Incisional hernia. We'll perform repair with mesh.
--- NOTE | 2019-02-20 09:09 | P.OP ---
Date of Procedure: 02/20/19 Preoperative Diagnosis: Incisional hernia Postoperative Diagnosis: Similar hernia Adhesions Procedure(s) Performed: Open repair of incisional hernia Lysis of adhesions Enterorrhaphy Anesthesia: GO Surgeon: Gilbert Wu Estimated Blood Loss (ml): 10 Pathology: none sent Condition: stable Disposition: PACU Description of Procedure: The patient's placed on the operating table in the supine position. He received general anesthesia. His abdomen was prepped and draped usual fashion. The skin was incised in midline. Using blunt and sharp dissection with cautery of the hernia sac was dissected off of the subcutaneous tissue. 30 seconds and opened. There extensive adhesions within the hernia sac the small bowel was then dissected off the hernia sac with sharp dissection and then the small bowel was further dissected off the fascia. During the lysis of adhesions or a small enterotomy made in the small bowel. This repaired with 3-0 GI silk suture. The fascial defect was quite large. The fascial defect was then closed using #1 strep and affixed suture. Once the fascia was repaired. A TERESO drains placed through separate stab incision placed over top of that repair. The subcu fascia was closed with 0 Vicryl suture. Skin was closed jules. Patient tolerated she will was sent to recovery in stable condition.
[2019-02-20] MEDS: HYDROmorphone 1 MG/ML 1 ML SYRINGE IVP ONE ×4 (09:13→10:04)
[2019-02-20] MEDS ORDERED: LACTATED RINGERS 1,000 ML IV ONE (14:02)
--- NOTE | 2019-02-20 14:47 | P.CONS ---
History of Present Illness - Reason for Consult Preoperative complication management. - History of Present Illness Patient is a very pleasant 73-year-old gentleman is admitted for elective incisional hernia repair patient is clinically doing well has an abdominal binder in place denied any pain sluggish bowel sounds and had a colectomy in the past followed by a surgical scar in herniation. Patient denied nausea vomiting diarrhea, patient doesn't have any Bowens catheter at this time. Review of Systems REVIEW OF SYSTEMS: CONSTITUTIONAL: No fever, no malaise, no fatigue. HEENT: No recent visual problems or hearing problems. Denied any sore throat. CARDIOVASCULAR: No chest pain, orthopnea, PND, no palpitations, no syncope. PULMONARY: No shortness of breath, no cough, no hemoptysis. GASTROINTESTINAL: No diarrhea, no nausea, no vomiting, no abdominal pain. NEUROLOGICAL: No headaches, no weakness, no numbness. HEMATOLOGICAL: Denies any bleeding or petechiae. GENITOURINARY: Denies any burning micturition, frequency, or urgency. MUSCULOSKELETAL/RHEUMATOLOGICAL: Denies any joint pain, swelling, or any muscle pain. ENDOCRINE: Denies any polyuria or polydipsia. The rest of the 14-point review of systems is negative. Past Medical History Past Medical History: Cancer Additional Past Medical History / Comment(s): PROSTATE CANCER (2007), COLON CANCER (2016 WITH LAST CHEMO APR 2017), History of Any Multi-Drug Resistant Organisms: None Reported Past Surgical History: Appendectomy, Bowel Resection, Prostate Surgery Additional Past Surgical History / Comment(s): CATARACTS, [facility]. PROSTATE SX Past Anesthesia/Blood Transfusion Reactions: No Reported Reaction Smoking Status: Current every day smoker - Past Family History Son(s) Family Medical History: Cancer Additional Family Medical History / Comment(s): COLON CANCER Medications and Allergies Home Medications Medication Instructions Recorded Confirmed Type No Known Home Medications 02/18/19 02/20/19 History Allergies Allergy/AdvReac Type Severity Reaction Status Date / Time No Known Allergies Allergy Verified 02/20/19 06:30 Physical Exam Vitals: Vital Signs Temp Pulse Pulse Pulse Resp BP Pulse Ox 02/20/19 13:00 78 18 150/79 94 L 02/20/19 12:02 77 18 142/78 95 02/20/19 12:00 79 16 142/80 94 L 02/20/19 11:32 85 18 148/85 94 L 02/20/19 11:02 83 18 140/76 94 L 02/20/19 10:32 84 18 146/81 92 L 02/20/19 10:02 79 18 151/87 92 L 02/20/19 09:46 80 18 152/79 96 02/20/19 09:31 84 18 153/83 95 02/20/19 09:16 79 18 167/82 99 02/20/19 09:04 98.6 F 81 16 169/86 99 02/20/19 07:30 88 16 136/70 97 02/20/19 06:36 97.7 F 94 16 145/80 95 Intake and Output 02/19/19 02/20/19 02/20/19 22:59 06:59 14:59 Intake Total 300 1750 Output Total 50 Balance 300 1700 Intake: IV 300 1750 Output: Estimated Blood Loss 50 Other: Weight 78.471 kg PHYSICAL EXAMINATION: GENERAL: The patient is alert and oriented x3, not in any acute distress. Well developed, well nourished. HEENT: Pupils are round and equally reacting to light. EOMI. No scleral icterus. No conjunctival pallor. Normocephalic, atraumatic. No pharyngeal erythema. No thyromegaly. CARDIOVASCULAR: S1 and S2 present. No murmurs, rubs, or gallops. PULMONARY: Chest is clear to auscultation, no wheezing or crackles. ABDOMEN: Soft, nontender, nondistended, patient is an abdominal binder a surgical drain in place and sluggish bowel sounds MUSCULOSKELETAL: No joint swelling or deformity. EXTREMITIES: No cyanosis, clubbing, or pedal edema. NEUROLOGICAL: Gross neurological examination did not reveal any focal deficits. SKIN: No rashes. Assessment and Plan Plan: Postoperative day 0, incisional hernia repair: Pain management due to prophylaxis as per primary service -Nicotine abuse: Counseling was provided will order 21 g of nicotine patch . -History of colon cancer and prostate cancer in remission.
[2019-02-20] MEDS: HYDROmorphone 1 MG/ML 1 ML SYRINGE IVP PRN ×2 (14:59→21:31)
[2019-02-20 18:02] VITALS: BMI 26.2
[2019-02-20] MEDS: HEPARIN SODIUM,PORCINE 5,000 UNIT/ML 1 ML VIAL SQ SCH ×2 (18:50→23:49)
[2019-02-20] MEDS: D5-0.45% NACL WITH KCL 20MEQ/L 1,000 ML IV SCH ×2 (19:38→21:34)
[2019-02-20] MEDS: NICOTINE 21MG/24HR PATCH TRANSDERM SCH (21:34)
[2019-02-21] MEDS: D5-0.45% NACL WITH KCL 20MEQ/L 1,000 ML IV SCH ×4 (04:46→23:53)
[2019-02-21] MEDS: SYMBICORT 80-4.5 MCG INHALER INHALATION SCH ×3 (05:39→20:18)
[2019-02-21] MEDS: IPRATROPIUM-ALBUTEROL 3 ML NEB INHALATION SCH ×5 (05:39→20:07)
--- NOTE | 2019-02-21 05:51 | XR ---
EXAM: XR Chest, 1 View CLINICAL HISTORY: ITS.REASON XR Reason: Short of breath TECHNIQUE: Frontal view of the chest. COMPARISON: 10/22/16 FINDINGS: Lungs: Bibasilar atelectasis and possible underlying infiltrate seen in the left lung base. Pleural space: Small pleural effusions. No pneumothorax. Heart: Unremarkable. No cardiomegaly. Mediastinum: Unremarkable. Bones/joints: Unremarkable. IMPRESSION: Bibasilar atelectasis and possible underlying infiltrate seen in the left lung base.
[2019-02-21] MEDS: HYDROmorphone 1 MG/ML 1 ML SYRINGE IVP PRN (07:19)
[2019-02-21] MEDS: HEPARIN SODIUM,PORCINE 5,000 UNIT/ML 1 ML VIAL SQ SCH ×3 (10:23→23:54)
[2019-02-21] MEDS: NICOTINE 21MG/24HR PATCH TRANSDERM SCH (10:23)
--- NOTE | 2019-02-21 11:48 | P.DS ---
Providers Expected date of discharge: 02/21/19 Attending physician: Gilbert Wu Consults: 02/20/19 09:11 Consult Physician Routine Consulting Provider: Onel Sommers Consult Reason/Comments: Medical management Do you want consulting provider notified?: Yes Primary care physician: [facility] Course: This a 73-year-old male who underwent repair of incisional hernia. Patient did well postoperative. Please see chart for details. Procedures: Open repair of Incisional hernia Patient Condition at Discharge: Good Plan - Discharge Summary Discharge Rx Participant: Yes New Discharge Prescriptions: New Docusate [Colace] 100 mg PO BID #20 capsule HYDROcodone/APAP 5-325MG [[place] 5-325] 1 tab PO Q6HR PRN #10 tab PRN Reason: Pain Discharge Medication List Docusate [Colace] 100 mg PO BID #20 capsule 02/21/19 [Rx] HYDROcodone/APAP 5-325MG [[place] 5-325] 1 tab PO Q6HR PRN #10 tab 02/21/19 [Rx] Follow up Appointment(s)/Referral(s): Gilbert Wu MD [STAFF PHYSICIAN] - 02/28/19 2:20 pm Discharge Disposition: HOME SELF-CARE
[2019-02-21] MEDS: FAMOTIDINE 20 MG TAB PO SCH ×2 (13:07→22:18)
[2019-02-21] MEDS: KETOROLAC 30 MG/ML 1 ML VIAL IVP PRN ×2 (13:07→22:17)
--- NOTE | 2019-02-21 14:03 | P.PN ---
Subjective Patient is admitted for incisional any repairs he was doing well yesterday when I evaluated and last night at received a call at around 3 AM about the patient desaturating and wheezing patient was started on inhaled steroids inhalational treatments patient was on 4 L. Able to wean it down and the turn of the oxygen although he still bit of short of breath patient didn't pass gas yet a bit nauseous. Patient was asked to ambulate. If patient was started on inhaled steroids inhalational treatments which will be continued. We'll start him on a ny systemic steroids at this time because of his recent surgery which will interfere with the healing process. Although patient barely has any air entry into bilateral lung ghotra no wheezing on exam. Constitutional: Denied any fatigue denied any fever. Cardio vascular: denied any chest pain, palpitations Gastrointestinal as mentioned in HPI Pulmonary: As mentioned in HPI Neurologic denied any new focal deficits All inpatient medications were reviewed and appropriate changes in these medications as dictated in the interval history and assessment and plan. Objective - Vital Signs Vital signs: Vital Signs Temp 98.4 F 02/21/19 07:00 Pulse 96 02/21/19 11:54 Resp 16 02/21/19 08:05 BP 152/80 02/21/19 07:00 Pulse Ox 95 02/21/19 07:00 Intake & Output 02/20/19 02/21/19 02/21/19 18:59 06:59 18:59 Intake Total 1750 1500 Output Total 50 50 Balance 1700 1450 Intake: IV 1750 Intake, IV Titration 1500 Amount D5-0.45% NaCl with KCl 1500 20Meq/l 1,000 ml @ 125 mls/hr IV .Q8H FOR[facility]LY [facility], [facility]–1983 Rx#: [id number] Output: Drainage 50 Abdomen 50 Estimated Blood Loss 50 Other: # Voids 1 1 - Exam PHYSICAL EXAMINATION: GENERAL: The patient is alert and oriented x3, not in any acute distress. Well developed, well nourished. HEENT: Pupils are round and equally reacting to light. EOMI. No scleral icterus. No conjunctival pallor. Normocephalic, atraumatic. No pharyngeal erythema. No thyromegaly. CARDIOVASCULAR: S1 and S2 present. No murmurs, rubs, or gallops. PULMONARY: I can barely hear any air entry into bilateral lung ghotra no wheezing was appreciated ABDOMEN: Soft, nontender, nondistended, normoactive bowel sounds. No palpable organomegaly. MUSCULOSKELETAL: No joint swelling or deformity. EXTREMITIES: No cyanosis, clubbing, or pedal edema. NEUROLOGICAL: Gross neurological examination did not reveal any focal deficits. SKIN: No rashes. Assessment and Plan Plan: -COPD with acute exacerbation: Management with inhaled steroids inhalational treatments as mentioned above will monitor 1 more night. Nicotine cessation counseling was provided Postoperative day 1, incisional hernia repair: Pain management and DVT prop hylaxis as per primary service, although his eye to Marfan was discontinued and patient was started on Toradol patient didn't pass gas with nauseous patient was asked to ambulate. -Nicotine abuse: Counseling was provided will order 21 g of nicotine patch . -History of colon cancer and prostate cancer in remission.
[2019-02-21] MEDS: LACTATED RINGERS 1,000 ML IV SCH (19:01)
[2019-02-22] MEDS: IPRATROPIUM-ALBUTEROL 3 ML NEB INHALATION SCH ×4 (00:12→12:39)
[2019-02-22 02:17] VITALS: RESP 16
[2019-02-22] MEDS: KETOROLAC 30 MG/ML 1 ML VIAL IVP PRN ×2 (05:32→11:15)
[2019-02-22 07:46] VITALS: BP 146/76; TEMP 97.7
[2019-02-22] MEDS: HEPARIN SODIUM,PORCINE 5,000 UNIT/ML 1 ML VIAL SQ SCH (08:22)
[2019-02-22] MEDS: FAMOTIDINE 20 MG TAB PO SCH (08:23)
[2019-02-22] MEDS: NICOTINE 21MG/24HR PATCH TRANSDERM SCH (08:23)
--- NOTE | 2019-02-22 08:46 | P.PN ---
Progress Note - Text Progress Note Date: 02/22/19 The patient feels well. He's had no further shortness of breath. On exam his vital signs are stable. His abdomen soft. Patiently discharged home. He'll follow myself in 1 week.
[2019-02-22] MEDS: SYMBICORT 80-4.5 MCG INHALER INHALATION SCH (09:40)
[2019-02-22 12:53] VITALS: PULSE 88
--- NOTE | 2019-02-22 15:39 | P.PN ---
Subjective Patient is admitted for incisional any repairs he was doing well yesterday when I evaluated and last night at received a call at around 3 AM about the patient desaturating and wheezing patient was started on inhaled steroids inhalational treatments patient was on 4 L. Able to wean it down and the turn of the oxygen although he still bit of short of breath patient didn't pass gas yet a bit nauseous. Patient was asked to ambulate. If patient was started on inhaled steroids inhalational treatments which will be continued. We'll start him on a ny systemic steroids at this time because of his recent surgery which will interfere with the healing process. Although patient barely has any air entry into bilateral lung ghotra no wheezing on exam. 02/22/2019 Patient is clinically doing well wheezing improved still has mild wheezing patient is saturating well on ambulation patient will be discharged today and albuterol inhaled steroids and Spiriva. Constitutional: Denied any fatigue denied any fever. Cardio vascular: denied any chest pain, palpitations Gastrointestinal as mentioned in HPI Pulmonary: As mentioned in HPI Neurologic denied any new focal deficits All inpatient medications were reviewed and appropriate changes in these medications as dictated in the interval history and assessment and plan. Objective - Vital Signs Vital signs: Vital Signs Temp 97.7 F 02/22/19 07:00 Pulse 88 02/22/19 12:52 Resp 16 02/22/19 08:20 BP 146/76 02/22/19 07:00 Pulse Ox 96 02/22/19 07:00 Intake & Output 02/21/19 02/22/19 02/22/19 18:59 06:59 18:59 Intake Total 900 10 750 Output Total 20 40 20 Balance 880 -30 730 Intake: IV 10 Invasive Line 2 10 Intake, IV Titration 250 200 Amount D5-0.45% NaCl with KCl 250 200 20Meq/l 1,000 ml @ 125 mls/hr IV .Q8H [facility] Rx#: [id number] Oral 650 550 Output: Drainage 20 40 20 Abdomen 20 40 20 Other: # Voids 3 1 1 - Exam PHYSICAL EXAMINATION: GENERAL: The patient is alert and oriented x3, not in any acute distress. Well developed, well nourished. HEENT: Pupils are round and equally reacting to light. EOMI. No scleral icterus. No conjunctival pallor. Normocephalic, atraumatic. No pharyngeal erythema. No thyromegaly. CARDIOVASCULAR: S1 and S2 present. No murmurs, rubs, or gallops. PULMONARY: Decreased air entry into bilateral lung ghotra but better than yesterday. ABDOMEN: Soft, nontender, nondistended, normoactive bowel sounds. No palpable organomegaly. MUSCULOSKELETAL: No joint swelling or deformity. EXTREMITIES: No cyanosis, clubbing, or pedal edema. NEUROLOGICAL: Gross neurological examination did not reveal any focal deficits. SKIN: No rashes. Assessment and Plan Plan: -COPD with acute exacerbation: Management with inhaled steroids inhalational treatments as mentioned above Nicotine cessation counseling was provided Postoperative day 2, incisional hernia repair: Patient did pass gas and a small bowel movement initially doing well -Nicotine abuse: Counseling was provided -History of colon cancer and prostate cancer in remission.
== END 2019-02-22 13:54 | disposition home or self-care (01) ==
LOC: OR 06:06 → 4SSUR 13:55 → OR 02-22 13:54
PROVIDERS: ATTEND Surgery
DX: K43.2 Incisional hernia without obstruction or gangrene (principal); K66.0 Peritoneal adhesions (postprocedural) (postinfection); J44.1 Chronic obstructive pulmonary disease with (acute) exacerbation; J98.11 Atelectasis; I45.10 Unspecified right bundle-branch block; Z85.46 Personal history of malignant neoplasm of prostate; Z85.038 Personal history of other malignant neoplasm of large intestine; Z92.21 Personal history of antineoplastic chemotherapy; Z90.49 Acquired absence of other specified parts of digestive tract; Z90.79 Acquired absence of other genital organ(s); Z98.49 Cataract extraction status, unspecified eye; F17.200 Nicotine dependence, unspecified, uncomplicated; Z80.0 Family history of malignant neoplasm of digestive organs
CPT/HCPCS: 49560; 64488; 94640 ×3; 94760; 71045; J2250 ×2; J1644 ×3; J1100; J2710; J0690; J2405; J2001; J3010; J1885 ×3; J1170 ×2; J2795; J0330; J2704